=== PATIENT | male | born 1955 | race Caucasian/White ===

== ENCOUNTER 2016-11-17 07:52 | Outpatient (CLI) | payer OTHER | END 2016-11-17 07:53 | disposition EMS.NT | LOC: EMS 07:52 | PROVIDERS: ATTEND Surgery | DX: R42 Dizziness and giddiness (principal); R03.0 Elevated blood-pressure reading, without diagnosis of hypertension ==

== ENCOUNTER 2016-11-17 09:04 | Emergency (ER) | payer OTHER ==
--- NOTE | 2016-11-17 09:26 | ED Physician Documentation ---
PD HPI CHEST PAIN - Stated complaint Stated Complaint: ELEV BP - Chief complaint Chief Complaint: General - History obtained from History obtained from: Patient - History of Present Illness Timing - onset: Today (he says his BP has been pretty good, with slightly increasing over the past few weeks, running about 130s systolic. Today felt flushed and took BP and it was over 200 systolic. He waited and took it a few times more and was about the same. Came to ED for evaluation. Called PMD office and was given appt for 10 am today, but felt he should not wait with the BP that high.) Timing - onset during: Light activity Timing - details: Gradual onset Quality: Other (no chest pains per se. He did have feeling of some tightness in head and flushed feeling in face. He was feeling okay otherwise.). No: Pressure , Tightness Associated symptoms: No: Shortness of air, Diaphoresis, Nausea, Vomiting, Feeling faint / dizzy, General Weakness, Palpitations Similar symptoms before: Has not had sx before Recently seen: Clinic (BP was doing well so his PMD had taken him off HCTZ a few months ago. He is on Lisinopril 20 mg PO daily. No recent illness nor other change in meds.) Review of Systems Constitutional: denies: Fever, Chills Eyes: denies: Loss of vision, Decreased vision Nose: denies: Rhinorrhea / runny nose, Congestion Throat: denies: Sore throat Cardiac: denies: Chest pain / pressure, Palpitations Respiratory: denies: Dyspnea, Cough, Wheezing GI: denies: Abdominal Pain, Nausea, Vomiting, Diarrhea Musculoskeletal: denies: Extremity swelling PD PAST MEDICAL HISTORY - Past Medical History Cardiovascular: Hypertension, High cholesterol Respiratory: Sleep apnea, CPAP use Neuro: None Endocrine/Autoimmune: None GI: Colon polyps, Hemorrhoids : Kidney stones HEENT: None Psych: None Musculoskeletal: Osteoarthritis Derm: Other Other Past Medical History: hyperglycemia - Past Surgical History Past Surgical History: Yes General: Colonoscopy Ortho: Hip replacement HEENT: Tonsil/Adenoidectomy - Present Medications Home Medications: Ambulatory Orders Medication Instructions Recorded Confirmed Aspirin EC [Ecotrin] 81 mg PO DAILY 05/15/13 11/17/16 Lisinopril [Zestril] 10 mg PO DAILY 05/15/13 11/17/16 Simvastatin [Zocor] 40 mg PO QPM 05/15/13 11/17/16 hydroCHLOROthiazide [Hydrodiuril] 25 mg PO DAILY 05/15/13 11/17/16 Ibuprofen [Advil] 200 - 400 mg PO DAILY PRN 04/26/15 11/17/16 metFORMIN [Glucophage] 500 mg PO DAILY 11/17/16 11/17/16 - Allergies Allergies/Adverse Reactions: Allergies Allergy/AdvReac Type Severity Reaction Status Date / Time No Known Drug Allergies Allergy Verified 03/04/15 12:55 - Social History Does the pt smoke?: Yes Smoking Status: Current every day smoker Does the pt drink ETOH?: No Does the pt have substance abuse?: No - Immunizations Immunizations are current?: Yes PD ED PE NORMAL - Vitals Vital signs reviewed: Yes - General General: Alert and oriented X 3, No acute distress, Well developed/nourished - HEENT HEENT: PERRL, EOMI, Pharynx benign - Neck Neck: Supple, no meningeal sign, No adenopathy - Cardiac Cardiac: RRR, No murmur - Respiratory Respiratory: Clear bilaterally - Abdomen Abdomen: Soft, Non tender - Derm Derm: Normal color, Warm and dry - Extremities Extremities: No tenderness to palpate, Normal ROM s pain, No edema, No calf tenderness / cord - Neuro Neuro: Alert and oriented X 3, hand weaver 2-12 intact, No motor deficit, No sensory deficit, Normal speech - Psych Psych: Normal mood, Normal affect Results - Vitals Vitals: Vital Signs - 24 hr 11/17/16 11/17/16 11/17/16 09:08 10:09 10:21 Heart Rate 68 Respiratory 20 Rate Blood Pressure 188/79 H 151/70 H 149/78 H O2 Saturation 100 Oxygen O2 Source [With Activity] Room air O2 Source [Without Activity] Room air O2 Source Room air - EKG (time done) 09:58 Rate: Rate (enter#) (47) Rhythm: Sinus bradycardia [place]: Normal Intervals: Normal CA Ischemia: Normal ST segments. No: ST elevation c/w ischemia, ST depression PD MEDICAL DECISION MAKING - ED course Complexity details: considered differential (no real symptoms except feeling flushed earlier. BP slowly decreasing. I talked with him about AHA and JNC guidelines about not intervening aggressively. ), d/w patient Departure - Departure Disposition: 01 Home, Self Care Clinical Impression: Hypertension Qualifiers: Hypertension type: unspecified secondary hypertension Qualified Code(s): I15.9 - Secondary hypertension, unspecified Condition: Stable Record reviewed to determine appropriate education?: Yes Instructions: ED HTN Established Comments: Continue your lisinopril 20 mg daily; and resume the HCTZ daily. See how your pressure does over the next several days/week. Since your BP has been doing reasonably well lately (just somewhat elevated), then I would not want to add anything aggressively now and get your BP too low. Discharge Date/Time: 11/17/16 10:22
[2016-11-17 10:22] VITALS: BP 149/78
== END 2016-11-17 10:22 | disposition home or self-care (01) ==
LOC: ED 09:04
DX: I10 Essential (primary) hypertension (principal); E78.00 Pure hypercholesterolemia, unspecified; G47.30 Sleep apnea, unspecified; M19.90 Unspecified osteoarthritis, unspecified site; Z86.010 Personal history of colon polyps; Z87.442 Personal history of urinary calculi; Z79.82 Long term (current) use of aspirin; F17.200 Nicotine dependence, unspecified, uncomplicated
CPT/HCPCS: 93005; 93010; 99283; 99284

== ENCOUNTER 2017-02-19 14:44 | Outpatient (CLI) | payer OTHER | END 2017-02-19 14:45 | disposition home or self-care (01) | LOC: SC 14:44 | PROVIDERS: ATTEND Nurse Practitioner Family | DX: G47.33 Obstructive sleep apnea (adult) (pediatric) (principal) | CPT/HCPCS: 99212; 99214 ==

== ENCOUNTER 2017-03-17 17:23 | Emergency (ER) | payer OTHER ==
[2017-03-17 17:31] VITALS: BP 157/82
[2017-03-17] MEDS ORDERED: TETANUS/DIPHTHERIA/PERTUSSIS 0.5 ML SYRINGE IM ONE ×2 (17:56→18:08)
--- NOTE | 2017-03-17 17:58 | ED Physician Documentation ---
PD HPI UPPER EXT INJURY - Stated complaint Stated Complaint: FINGER LAC - Chief complaint Chief Complaint: Laceration - History obtained from History obtained from: Patient - History of Present Illness Location: Other (Right-handed gentleman, unclear tetanus status, cut himself with a sharp knife to the left second finger while making dinner just prior to arrival at home.) Review of Systems Constitutional: reports: Reviewed and negative Cardiac: reports: Reviewed and negative Respiratory: reports: Reviewed and negative PD PAST MEDICAL HISTORY - Past Medical History Cardiovascular: Hypertension, High cholesterol Respiratory: Sleep apnea, CPAP use Neuro: None Endocrine/Autoimmune: None GI: Colon polyps, Hemorrhoids : Kidney stones HEENT: None Psych: None Musculoskeletal: Osteoarthritis Derm: Other - Past Surgical History Past Surgical History: Yes General: Colonoscopy Ortho: Hip replacement HEENT: Tonsil/Adenoidectomy - Present Medications Home Medications: Ambulatory Orders Medication Instructions Recorded Confirmed Aspirin EC [Ecotrin] 81 mg PO DAILY 05/15/13 03/17/17 Lisinopril [Zestril] 10 mg PO DAILY 05/15/13 03/17/17 Simvastatin [Zocor] 40 mg PO QPM 05/15/13 03/17/17 hydroCHLOROthiazide [Hydrodiuril] 25 mg PO DAILY 05/15/13 03/17/17 Ibuprofen [Advil] 200 - 400 mg PO DAILY PRN 04/26/15 03/17/17 metFORMIN [Glucophage] 500 mg PO DAILY 11/17/16 03/17/17 - Allergies Allergies/Adverse Reactions: Allergies Allergy/AdvReac Type Severity Reaction Status Date / Time No Known Drug Allergies Allergy Verified 03/17/17 17:31 - Social History Does the pt smoke?: Yes Smoking Status: Current every day smoker Does the pt drink ETOH?: No Does the pt have substance abuse?: No - Immunizations Immunizations are current?: Yes PD ED PE NORMAL - Vitals Vital signs reviewed: Yes - General General: Alert and oriented X 3, No acute distress - Extremities Extremities: Other (On the palmar side of the left hand at the base of the Second digit, just distal to the level of the MCP there is a 1.5 cm laceration with intact sensation and cap refill of the tip and normal flexor tendon function.) - Neuro Neuro: Alert and oriented X 3, Normal speech Results - Vitals Vitals: Vital Signs - 24 hr 03/17/17 17:28 Temperature 36.6 C Heart Rate 74 Respiratory 16 Rate Blood Pressure 157/82 H O2 Saturation 98 Oxygen O2 Source [With Activity] Room air O2 Source [Without Activity] Room air O2 Source Room air Procedures - Laceration (location) Left second finger Length in cm: 1.5 Wound type: Linear Neurovascular status: Sensory intact, Motor intact, Vascular intact Tendon involvement: Tendon intact Anesthesia: Lidocaine 1%, With bicarb Wound Preparation: Irrigated copiously NS Skin layer closure: Nylon, Interrupted, Size #-0 - enter number (4-0), Sutures - enter # (7) Other: Patient tolerated well, No complications, Tetanus booster given Complexity: Simple Departure - Departure Disposition: 01 Home, Self Care Clinical Impression: Laceration Condition: Good Record reviewed to determine appropriate education?: Yes Instructions: ED Laceration Hand Comments: Come back for any signs of infection which would include: Redness, swelling, drainage, increased pain, or fevers. Follow-up with your physician in 10-14 days for suture removal. Your blood pressure was elevated today on check into the emergency department. This does not mean that you have hypertension, it is a common phenomenon to come to the emergency department and have elevated blood pressure. I recommend that she see your primary care physician within the week to have it rechecked when you are feeling better.
== END 2017-03-17 18:15 | disposition home or self-care (01) ==
LOC: ED 17:23
DX: S61.211A Laceration without foreign body of left index finger without damage to nail, initial encounter (principal); W26.0XXA Contact with knife, initial encounter; Y93.G1 Activity, food preparation and clean up; Y92.019 Unspecified place in single-family (private) house as the place of occurrence of the external cause; Z23 Encounter for immunization; I10 Essential (primary) hypertension; E78.00 Pure hypercholesterolemia, unspecified; G47.30 Sleep apnea, unspecified; M19.90 Unspecified osteoarthritis, unspecified site; Z86.010 Personal history of colon polyps; Z87.442 Personal history of urinary calculi; Z79.82 Long term (current) use of aspirin; F17.200 Nicotine dependence, unspecified, uncomplicated
CPT/HCPCS: 12001; 90471; 99282

== ENCOUNTER 2017-07-08 08:00 | Outpatient (CLI) | payer OTHER ==
[2017-07-08 19:13] LABS: BASOPHILS # (AUTO) 0.1 10^3/uL (0.0-0.1); BASOPHILS % (AUTO) 0.9 %; EOSINOPHILS # (AUTO) 0.2 10^3/uL (0.0-0.7); EOSINOPHILS % (AUTO) 2.6 %; HGB - HEMOGLOBIN 14.5 g/dL (14.0-18.0); LYMPHOCYTES # (AUTO) 2.6 10^3/uL (1.5-3.5); LYMPHOCYTES % (AUTO) 27.9 %; MEAN CORPUSCULAR HEMOGLOBIN 32.4 pg (27.0-31.0); MEAN CORPUSCULAR HGB CONC 33.7 g/dL (32.0-36.0); MEAN CORPUSCULAR VOLUME 95.9 fL (80.0-94.0); MEAN PLATELET VOLUME 8.6 fL (7.4-11.4); MONOCYTES # (AUTO) 0.7 10^3/uL (0.0-1.0); MONOCYTES % (AUTO) 7.4 %; NEUTROPHILS # (AUTO) 5.6 10^3/uL (1.5-6.6); NEUTROPHILS % (AUTO) 61.2 %; PLT - PLATELET COUNT 196 10^3/uL (130-450); RED BLOOD COUNT 4.48 10^6/uL (4.70-6.10); RED CELL DISTRIBUTION WIDTH 13.5 % (12.0-15.0); WHITE BLOOD COUNT 9.2 x10^3/uL (4.8-10.8)
[2017-07-08 19:24] LABS: HB2 TOTAL 15.7 g/dL; HEMOGLOBIN A1C 0.64 g/dL; HEMOGLOBIN A1C % 5.9 % (4.6-6.2)
[2017-07-08 19:33] LABS: ALBUMIN 4.6 g/dL (3.2-5.5); ALKALINE PHOSPHATASE 47 IU/L (42-121); ALT ALANINE AMINOTRANSFERASE 22 IU/L (10-60); AST ASPARTATE AMINOTRANSFERASE 20 IU/L (10-42); BILIRUBIN,TOTAL 0.4 mg/dL (0.2-1.0); BUN - BLOOD UREA NITROGEN 23 mg/dL (6-20); CALCIUM 9.1 mg/dL (8.5-10.3); CARBON DIOXIDE - CO2 24 mmol/L (21-32); CHLORIDE 102 mmol/L (101-111); CHOL/HDL RATIO 5.1 (<5.0); CHOLESTEROL 199 mg/dL; GFR - MDRD 76 (>89); GLUCOSE 85 mg/dL (70-100); HDL CHOLESTEROL 39 mg/dL; LDL CHOLESTEROL,CALCULATED 127 mg/dL; LDL/HDL RATIO 3.3 (<3.6); SODIUM 132 mmol/L (135-145); TOTAL PROTEIN 6.9 g/dL (6.7-8.2); VLDL CHOLESTEROL 33 mg/dL
== END 2017-07-08 08:01 | disposition home or self-care (01) ==
LOC: LAB.WCP 08:00
PROVIDERS: ATTEND Family Medicine
DX: I10 Essential (primary) hypertension (principal); E78.5 Hyperlipidemia, unspecified; R73.01 Impaired fasting glucose
CPT/HCPCS: 36415; 80053; 80061; 83036; 83721; 85025

== ENCOUNTER 2017-07-31 08:00 | Outpatient (CLI) | payer OTHER | END 2017-07-31 08:01 | disposition home or self-care (01) | LOC: LAB.WCP 08:00 | PROVIDERS: ATTEND Family Medicine | DX: R19.7 Diarrhea, unspecified (principal) | CPT/HCPCS: 81599; 83630; 87045; 87046; 87177; 87209; 87329; 87493 ==

== ENCOUNTER 2017-10-02 09:22 | Outpatient (CLI) | payer OTHER ==
[2017-10-02 13:43] LABS: HB2 TOTAL 15.5 g/dL; HEMOGLOBIN A1C 0.6 g/dL; HEMOGLOBIN A1C % 5.7 % (4.6-6.2)
[2017-10-02 13:44] LABS: ALBUMIN 4.5 g/dL (3.2-5.5); ALBUMIN/GLOBULIN RATIO 1.9 (1.0-2.2); ALKALINE PHOSPHATASE 44 IU/L (42-121); ALT ALANINE AMINOTRANSFERASE 16 IU/L (10-60); AST ASPARTATE AMINOTRANSFERASE 18 IU/L (10-42); BILIRUBIN,TOTAL 0.6 mg/dL (0.2-1.0); BUN - BLOOD UREA NITROGEN 23 mg/dL (6-20); CALCIUM 9.5 mg/dL (8.5-10.3); CARBON DIOXIDE - CO2 27 mmol/L (21-32); CHLORIDE 104 mmol/L (101-111); CHOL/HDL RATIO 4.4 (<5.0); CHOLESTEROL 160 mg/dL; GFR - MDRD 76 (>89); GLUCOSE 94 mg/dL (70-100); HDL CHOLESTEROL 36 mg/dL; LDL CHOLESTEROL,CALCULATED 105 mg/dL; LDL/HDL RATIO 2.9 (<3.6); SODIUM 136 mmol/L (135-145); TOTAL PROTEIN 6.9 g/dL (6.7-8.2); VLDL CHOLESTEROL 19 mg/dL
== END 2017-10-02 09:23 | disposition home or self-care (01) ==
LOC: LAB.WCP 09:22
PROVIDERS: ATTEND Family Medicine
DX: E78.5 Hyperlipidemia, unspecified (principal); R73.01 Impaired fasting glucose
CPT/HCPCS: 36415; 80053; 80061; 83036; 83721

== ENCOUNTER 2017-10-11 15:24 | Emergency (ER) | payer OTHER ==
--- NOTE | 2017-10-11 15:45 | ED Physician Documentation ---
PD HPI ABD PAIN - Stated complaint Stated Complaint: RT SIDE PAIN/POSS KIDNEY STONE - Chief complaint Chief Complaint: Abd Pain - History obtained from History obtained from: Patient - History of Present Illness Timing - onset: Today, How many weeks ago (has had some transient sharp pains right side/flank, which has become more severe and prolonged here this afternoon.) Timing - duration: Days Timing - details: Still present (now worst and more consistent today), Intermittant Quality: Aching, Dull, Pain Location: RLQ Radiation: Lower back Improved by: Laying still. No: Eating Worsened by: Moving, Position. No: Eating, Breathing, Palpation Associated symptoms: No: Fever, Nausea, Vomiting, Diarrhea, Constipation, Dysuria, Hematuria Similar symptoms before: Diagnosis (kidney stones.) Recently seen: Not recently seen Review of Systems Constitutional: denies: Fever Nose: denies: Rhinorrhea / runny nose, Congestion Throat: denies: Sore throat Cardiac: denies: Chest pain / pressure, Palpitations Respiratory: denies: Dyspnea, Cough : reports: Dysuria, Frequency Skin: denies: Lesions, Abrasion (s), Laceration (s) Musculoskeletal: denies: Neck pain PD PAST MEDICAL HISTORY - Past Medical History Cardiovascular: Hypertension, High cholesterol Respiratory: Sleep apnea, CPAP use Neuro: None Endocrine/Autoimmune: None GI: Colon polyps, Hemorrhoids : Kidney stones HEENT: None Psych: None Musculoskeletal: Osteoarthritis Derm: Other - Past Surgical History Past Surgical History: Yes General: Colonoscopy Ortho: Hip replacement HEENT: Tonsil/Adenoidectomy - Present Medications Home Medications: Ambulatory Orders Medication Instructions Recorded Confirmed Aspirin EC [Ecotrin] 81 mg PO DAILY 05/15/13 03/17/17 Lisinopril [Zestril] 10 mg PO DAILY 05/15/13 03/17/17 Simvastatin [Zocor] 40 mg PO QPM 05/15/13 03/17/17 hydroCHLOROthiazide [Hydrodiuril] 25 mg PO DAILY 05/15/13 03/17/17 Ibuprofen [Advil] 200 - 400 mg PO DAILY PRN 04/26/15 03/17/17 metFORMIN [Glucophage] 500 mg PO DAILY 11/17/16 03/17/17 Ondansetron HCl [Zofran] 4 mg PO Q6H PRN #20 tablet 10/11/17 Oxycodone HCl/Acetaminophen 1 each PO Q6H PRN #20 tablet 10/11/17 [Percocet 5-325 mg Tablet] - Allergies Allergies/Adverse Reactions: Allergies Allergy/AdvReac Type Severity Reaction Status Date / Time No Known Drug Allergies Allergy Verified 10/11/17 15:32 - Social History Does the pt smoke?: Yes Smoking Status: Current every day smoker Does the pt drink ETOH?: No Does the pt have substance abuse?: No - Family History Family history: denies: Aortic aneursym, Aortic dissection - Immunizations Immunizations are current?: Yes PD ED PE NORMAL - Vitals Vital signs reviewed: Yes - General General: Alert and oriented X 3, No acute distress, Well developed/nourished - HEENT HEENT: Pharynx benign - Neck Neck: Supple, no meningeal sign, No adenopathy - Cardiac Cardiac: RRR, No murmur - Respiratory Respiratory: No respiratory distress, Clear bilaterally - Derm Derm: Normal color, Warm and dry - Extremities Extremities: No tenderness to palpate, Normal ROM s pain - Neuro Neuro: Alert and oriented X 3, No motor deficit, Normal speech Results - Vitals Vitals: Vital Signs - 24 hr 10/11/17 10/11/17 15:30 17:27 Temperature 36.7 C 36.8 C Heart Rate 54 L 62 Respiratory 16 15 Rate Blood Pressure 166/83 H 154/74 H O2 Saturation 98 99 Oxygen O2 Source [With Activity] Room air O2 Source [Without Activity] Room air O2 Source Room air - Labs Labs: Laboratory Tests 10/11/17 10/11/17 10/11/17 15:45 15:50 15:50 WBC 8.2 RBC 4.31 L Hgb 14.4 Hct 43.5 MCV 100.9 H MCH 33.4 H MCHC 33.1 RDW 14.5 Plt Count 167 MPV 8.1 Neut # 5.1 Lymph # 2.3 [place] # 0.6 Eos # 0.3 Baso # 0.1 Absolute Nucleated RBC 0.00 Nucleated RBC % 0.0 Sodium 135 Potassium 3.8 Chloride 103 Carbon Dioxide 25 Anion Gap 7.0 BUN 37 H Creatinine 1.2 Estimated GFR (MDRD) 61 L Glucose 111 H Calcium 9.7 Total Bilirubin 0.5 AST 17 ALT 18 Alkaline Phosphatase 49 Total Protein 6.9 Albumin 4.6 Globulin 2.3 Albumin/Globulin Ratio 2.0 Lipase 38 Urine Color YELLOW Urine Clarity CLEAR Urine pH 6.0 Ur Specific [place] 1.025 Urine Protein NEGATIVE Urine Glucose (UA) NEGATIVE Urine Ketones NEGATIVE Urine Occult Blood NEGATIVE Urine Nitrite NEGATIVE Urine Bilirubin NEGATIVE Urine Urobilinogen 0.2 (NORMAL) Ur Leukocyte Esterase NEGATIVE Ur Microscopic Review NOT INDICATED Urine Culture Comments NOT INDICATED - Rads (name of study) KUB CT Radiology: Prelim report reviewed (no acute process), EMP read contemporaneously (consider stone distal third ureter c/w stone. ) PD MEDICAL DECISION MAKING - ED course Complexity details: reviewed results (acting stone-like and not hurting to palpation. I think there is a Ca+ buildup distal third ureter, with mild kidney ), considered differential, d/w patient Departure - Departure Disposition: 01 Home, Self Care Clinical Impression: Right lateral abdominal pain, Ureterolithiasis Condition: Stable Record reviewed to determine appropriate education?: Yes Instructions: ED Stone Renal W Colic Follow-Up: Adia Lima MD [Primary Care Provider] - Prescriptions: Ondansetron HCl [Zofran] 4 mg PO Q6H PRN #20 tablet PRN Reason: Nausea / Vomiting Oxycodone HCl/Acetaminophen [Percocet 5-325 mg Tablet] 1 each PO Q6H PRN #20 tablet PRN Reason: Pain Comments: Drink lots of fluids. Ibuprofen 2-3 times a day for the next several days. Add Tylenol if needed. Use ondansetron if needed for nausea. Add Percocet if needed for pain. Recheck if does not seem like the stone is passed over the next several days. Return sooner if worse. Discharge Date/Time: 10/11/17 17:28
[2017-10-11 16:04] LABS: BASOPHILS # (AUTO) 0.1 10^3/uL (0.0-0.1); BASOPHILS % (AUTO) 0.8 %; EOSINOPHILS # (AUTO) 0.3 10^3/uL (0.0-0.7); HGB - HEMOGLOBIN 14.4 g/dL (14.0-18.0); LYMPHOCYTES # (AUTO) 2.3 10^3/uL (1.5-3.5); LYMPHOCYTES % (AUTO) 27.5 %; MEAN CORPUSCULAR HEMOGLOBIN 33.4 pg (27.0-31.0); MEAN CORPUSCULAR HGB CONC 33.1 g/dL (32.0-36.0); MEAN CORPUSCULAR VOLUME 100.9 fL (80.0-94.0); MEAN PLATELET VOLUME 8.1 fL (7.4-11.4); MONOCYTES # (AUTO) 0.6 10^3/uL (0.0-1.0); NEUTROPHILS # (AUTO) 5.1 10^3/uL (1.5-6.6); NEUTROPHILS % (AUTO) 61.7 %; PLT - PLATELET COUNT 167 10^3/uL (130-450); RED BLOOD COUNT 4.31 10^6/uL (4.70-6.10); RED CELL DISTRIBUTION WIDTH 14.5 % (12.0-15.0); WHITE BLOOD COUNT 8.2 x10^3/uL (4.8-10.8)
[2017-10-11 16:09] LABS: BILIRUBIN,URINE NEGATIVE (NEGATIVE); GLUCOSE, URINE (UA) NEGATIVE (NEGATIVE); KETONES,URINE (UA) NEGATIVE (NEGATIVE); LEUKOCYTE ESTERASE, URINE NEGATIVE (NEGATIVE); NITRITE,URINE NEGATIVE (NEGATIVE); OCCULT BLOOD,URINE NEGATIVE (NEGATIVE); PROTEIN,URINE NEGATIVE (NEGATIVE); UROBILINOGEN,URINE 0.2 (NORMAL) E.U./dL (NORMAL)
[2017-10-11 16:13] LABS: ALBUMIN 4.6 g/dL (3.2-5.5); BILIRUBIN,TOTAL 0.5 mg/dL (0.2-1.0); CALCIUM 9.7 mg/dL (8.5-10.3); CREATININE 1.2 mg/dL (0.6-1.2); TOTAL PROTEIN 6.9 g/dL (6.7-8.2)
[2017-10-11 16:14] LABS: CLARITY,URINE CLEAR (CLEAR)
--- NOTE | 2017-10-11 17:10 | CT Preliminary Report ---
Exam: CT KUB IMPRESSION: 1. Right renal lithiasis without obstructive uropathy. 2. Increasing small hepatic and right renal cysts. 3. Normal appendix. 4. No radiographic explanation for this gentleman's presenting symptoms. [facility] SITE ID: [id number]
--- NOTE | 2017-10-11 17:15 | CT Report ---
EXAM: CT ABDOMEN AND PELVIS EXAM DATE: 10/11/2017 04:47 PM. CLINICAL HISTORY: Nephrolithiasis. Right-sided flank and abdominal pain beginning today. COMPARISONS: 08/30/2014. TECHNIQUE: Routine helical CT imaging was performed through the abdomen and pelvis. IV contrast: None . Enteric contrast: No. Reconstructions: Coronal and sagittal. In accordance with CT protocol optimization, one or more of the following dose reduction techniques w ere utilized for this exam: automated exposure control, adjustment of mA and/or KV based on patient s ize, or use of iterative reconstructive technique. FINDINGS: Lung Bases: Unremarkable. Liver: Increasing number of 1.5 cm and smaller hepatic hypodensities, appearance favors cysts. Gallbladder/Bile Ducts: Unremarkable. Spleen: Normal. Pancreas: Normal. Adrenal Glands: Normal right adrenal gland. Stable hyperplasia left adrenal gland. Kidneys: Increasing caliber of the cortical cyst medial inferior aspect right kidney, currently 2.1 cm, previo usly 1.3 cm. Stable 1 mm stone in the inferior right renal calyx. No right hydronephrosis. Interval development of a 6 mm hemorrhagic cyst right renal cortex. No overlying contour abnormality. Right ureter is normal. Left kidney and left ureter are normal. Peritoneal Cavity/Bowel: Normal. No free fluid, free air or adenopathy. No masses or acute inflammato ry process. The appendix is well visualized and normal. Pelvic Organs: Normal. The bladder and visualized pelvic organs are within normal limits. Vasculature: No aneurysms or other significant abnormality. Bones: Bilateral total hip replacements. No significant abnormality. Other: None. IMPRESSION: 1. Right renal lithiasis without obstructive uropathy. 2. Increasing small hepatic and right renal cysts. 3. Normal appendix. 4. No radiographic explanation for this gentleman's presenting symptoms. [facility] Referring Provider Line: [phone] SITE ID: [id number]
[2017-10-11 17:28] VITALS: BP 154/74
== END 2017-10-11 17:28 | disposition home or self-care (01) ==
LOC: ED 15:24
DX: N20.1 Calculus of ureter (principal); I10 Essential (primary) hypertension; E78.00 Pure hypercholesterolemia, unspecified; F17.200 Nicotine dependence, unspecified, uncomplicated; Z96.649 Presence of unspecified artificial hip joint; Z79.82 Long term (current) use of aspirin
CPT/HCPCS: 36415; 74176; 80053; 81001; 81003; 83690; 85025; 87086; 99283

== ENCOUNTER 2017-11-06 03:55 | Emergency (ER) | payer OTHER ==
[2017-11-06] MEDS ORDERED: KETOROLAC 60 MG/2 ML VIAL IVP STA (04:06)
[2017-11-06] MEDS ORDERED: SODIUM CHLORIDE 0.9% 1,000 ML IV ONE (04:06)
[2017-11-06 04:17] LABS: BILIRUBIN,URINE NEGATIVE (NEGATIVE); GLUCOSE, URINE (UA) NEGATIVE (NEGATIVE); KETONES,URINE (UA) NEGATIVE (NEGATIVE); LEUKOCYTE ESTERASE, URINE NEGATIVE (NEGATIVE); NITRITE,URINE NEGATIVE (NEGATIVE); OCCULT BLOOD,URINE NEGATIVE (NEGATIVE); PROTEIN,URINE NEGATIVE (NEGATIVE); UROBILINOGEN,URINE 0.2 (NORMAL) E.U./dL (NORMAL)
[2017-11-06 04:19] LABS: BASOPHILS # (AUTO) 0.1 10^3/uL (0.0-0.1); BASOPHILS % (AUTO) 1.2 %; EOSINOPHILS # (AUTO) 0.3 10^3/uL (0.0-0.7); EOSINOPHILS % (AUTO) 2.4 %; HGB - HEMOGLOBIN 13.8 g/dL (14.0-18.0); LYMPHOCYTES # (AUTO) 1.7 10^3/uL (1.5-3.5); LYMPHOCYTES % (AUTO) 15.1 %; MEAN CORPUSCULAR HGB CONC 34.2 g/dL (32.0-36.0); MEAN CORPUSCULAR VOLUME 96.3 fL (80.0-94.0); MEAN PLATELET VOLUME 8.2 fL (7.4-11.4); MONOCYTES % (AUTO) 8.6 %; NEUTROPHILS # (AUTO) 8.4 10^3/uL (1.5-6.6); NEUTROPHILS % (AUTO) 72.7 %; PLT - PLATELET COUNT 149 10^3/uL (130-450); RED BLOOD COUNT 4.19 10^6/uL (4.70-6.10); RED CELL DISTRIBUTION WIDTH 14.1 % (12.0-15.0); WHITE BLOOD COUNT 11.5 x10^3/uL (4.8-10.8)
[2017-11-06 04:30] LABS: ALBUMIN 4.6 g/dL (3.2-5.5); ALBUMIN/GLOBULIN RATIO 1.9 (1.0-2.2); BILIRUBIN,TOTAL 0.7 mg/dL (0.2-1.0); CALCIUM 9.2 mg/dL (8.5-10.3); CREATININE 1.2 mg/dL (0.6-1.2)
--- NOTE | 2017-11-06 04:53 | ED Physician Documentation ---
PD HPI MALE - Stated complaint Stated Complaint: RT FLANK PAIN - Chief complaint Chief Complaint: Abd Pain - History obtained from History obtained from: Patient - History of Present Illness Timing - onset: Yesterday Timing - details: Gradual onset, Intermittant Associated symptoms: Back pain Similar symptoms before: Treatment Recently seen: Not recently seen - Additional information Additional information: Patient is a 62 year old male with a history of kidney stones who is presenting to the emergency department for right sided flank pain with radiation to his right side of his abdomen. patient denies nausea, vomiting, fever or chills. Review of Systems Constitutional: denies: Fever, Chills GI: denies: Abdominal Pain, Nausea, Vomiting : denies: Dysuria, Frequency PD PAST MEDICAL HISTORY - Past Medical History Past Medical History: Yes Cardiovascular: Hypertension, High cholesterol Respiratory: Sleep apnea, CPAP use Endocrine/Autoimmune: Type 2 diabetes GI: Colon polyps, Hemorrhoids : Kidney stones HEENT: None Psych: None Musculoskeletal: Osteoarthritis Derm: Other - Past Surgical History Past Surgical History: Yes General: Colonoscopy Ortho: Hip replacement HEENT: Tonsil/Adenoidectomy - Present Medications Home Medications: Ambulatory Orders Medication Instructions Recorded Confirmed Aspirin EC [Ecotrin] 81 mg PO DAILY 05/15/13 03/17/17 Lisinopril [Zestril] 20 mg PO DAILY 05/15/13 03/17/17 Simvastatin [Zocor] 40 mg PO QPM 05/15/13 03/17/17 hydroCHLOROthiazide [Hydrodiuril] 25 mg PO DAILY 05/15/13 03/17/17 Ibuprofen [Advil] 200 - 400 mg PO DAILY PRN 04/26/15 03/17/17 metFORMIN [Glucophage] 500 mg PO DAILY 11/17/16 03/17/17 Ondansetron HCl [Zofran] 4 mg PO Q6H PRN #20 tablet 10/11/17 Oxycodone HCl/Acetaminophen 1 - 2 each PO Q6H PRN #7 tablet 11/06/17 [Percocet 5-325 mg Tablet] - Allergies Allergies/Adverse Reactions: Allergies Allergy/AdvReac Type Severity Reaction Status Date / Time No Known Drug Allergies Allergy Verified 11/06/17 04:00 - Social History Does the pt smoke?: Yes Smoking Status: Current every day smoker Does the pt drink ETOH?: No Does the pt have substance abuse?: No - Immunizations Immunizations are current?: Yes - POLST Patient has POLST: No PD ED PE NORMAL - Vitals Vital signs reviewed: Yes - General General: Alert and oriented X 3, No acute distress - HEENT HEENT: Atraumatic, Moist mucous membranes - Neck Neck: Supple, no meningeal sign - Cardiac Cardiac: RRR - Respiratory Respiratory: No respiratory distress - Abdomen Abdomen: Soft, Non tender, Non distended - Derm Derm: Normal color, Warm and dry - Extremities Extremities: No deformity - Neuro Neuro: Alert and oriented X 3 Eye Opening: Spontaneous Motor: Obeys Commands Results - Vitals Vitals: Vital Signs - 24 hr 11/06/17 03:57 Temperature 36.1 C L Heart Rate 56 L Respiratory 18 Rate Blood Pressure 161/86 H O2 Saturation 100 Oxygen O2 Source [With Activity] Room air O2 Source [Without Activity] Room air O2 Source Room air - Labs Labs: Laboratory Tests 11/06/17 11/06/17 11/06/17 04:05 04:15 04:15 WBC 11.5 H RBC 4.19 L Hgb 13.8 L Hct 40.4 L MCV 96.3 H MCH 33.0 H MCHC 34.2 RDW 14.1 Plt Count 149 MPV 8.2 Neut # 8.4 H Lymph # 1.7 [place] # 1.0 Eos # 0.3 Baso # 0.1 Absolute Nucleated RBC 0.00 Nucleated RBC % 0.0 Sodium 136 Potassium 3.5 Chloride 103 Carbon Dioxide 25 Anion Gap 8.0 BUN 25 H Creatinine 1.2 Estimated GFR (MDRD) 61 L Glucose 121 H Calcium 9.2 Total Bilirubin 0.7 AST 18 ALT 15 Alkaline Phosphatase 55 Total Protein 7.0 Albumin 4.6 Globulin 2.4 Albumin/Globulin Ratio 1.9 Lipase 28 Urine Color YELLOW Urine Clarity CLEAR Urine pH 6.0 Ur Specific [place] 1.025 Urine Protein NEGATIVE Urine Glucose (UA) NEGATIVE Urine Ketones NEGATIVE Urine Occult Blood NEGATIVE Urine Nitrite NEGATIVE Urine Bilirubin NEGATIVE Urine Urobilinogen 0.2 (NORMAL) Ur Leukocyte Esterase NEGATIVE Ur Microscopic Review NOT INDICATED Urine Culture Comments NOT INDICATED PD MEDICAL DECISION MAKING - ED course Complexity details: reviewed old records, reviewed results, re-evaluated patient , considered differential, d/w patient, d/w family ED course: Patient was seen and examined at bedside. iv access was gained and labs were drawn. Patient was treated with a fluid bolus and toradol. urine was collected. Patient's previous results were reviewed. Patient's diagnostics were within normal limits. There was no blood in the urine and the symptoms were unlikely from renal colic, but possible from the hemorrhagic cyst. patient was well appearing and in no distress. Patient required no further inpatient work up and was stable for discharge with outpatient follow up. Departure - Departure Disposition: Home, Self Care Clinical Impression: Flank pain Condition: Good Instructions: ED Flank Pain Uncertain Cause Follow-Up: Adia Lima MD [Primary Care Provider] - Prescriptions: Ketorolac [Toradol] 10 mg PO Q6H #20 tablet Oxycodone HCl/Acetaminophen [Percocet 5-325 mg Tablet] 1 - 2 each PO Q6H PRN #7 tablet PRN Reason: pain Comments: Your diagnostics today were within normal limits. there is no sign of infection or blood in your urine. While it is possible that it is a kidney stone it is less likely. As these symptoms are becoming more frequent you should follow up with your pmd for a renal ultrasound. You should stay well hydrated. You can take ibuprofen or tylenol for pain and an occasional percocet for breakthrough pain. Forms: Activity restrictions
[2017-11-06 05:01] LABS: CLARITY,URINE CLEAR (CLEAR)
[2017-11-06 05:22] VITALS: BP 150/86
== END 2017-11-06 05:23 | disposition home or self-care (01) ==
LOC: ED 03:55
DX: R10.31 Right lower quadrant pain (principal); I10 Essential (primary) hypertension; E78.00 Pure hypercholesterolemia, unspecified; E11.9 Type 2 diabetes mellitus without complications; F17.200 Nicotine dependence, unspecified, uncomplicated; Z79.84 Long term (current) use of oral hypoglycemic drugs; Z96.649 Presence of unspecified artificial hip joint; Z87.442 Personal history of urinary calculi; Z79.82 Long term (current) use of aspirin
CPT/HCPCS: 36415; 80053; 81001; 81003; 83690; 85025; 87086; 96361; 96374; 99283

== ENCOUNTER 2017-11-19 11:04 | Day surgery (SDC) | payer OTHER ==
[2017-11-19] MEDS ORDERED: LACTATED RINGERS 1,000 ML IV ONE (11:37)
[2017-11-19] MEDS ORDERED: MIDAZOLAM 2 MG/2 ML VIAL IVP ONE (12:21)
[2017-11-19] MEDS ORDERED: fentaNYL 250 MCG/5 ML VIAL IVP ONE (12:21)
[2017-11-19 13:19] VITALS: BP 112/60
== END 2017-11-19 11:05 | disposition home or self-care (01) ==
LOC: SDS 11:04
PROVIDERS: ATTEND Surgery
PROC: 0DBL8ZX Excision of Transverse Colon, Via Natural or Artificial Opening Endoscopic, Diagnostic (ICD-10-PCS; 2017-11-19)
PROC: 0DBP8ZX Excision of Rectum, Via Natural or Artificial Opening Endoscopic, Diagnostic (ICD-10-PCS; 2017-11-19)
PROC: 0DBM8ZX Excision of Descending Colon, Via Natural or Artificial Opening Endoscopic, Diagnostic (ICD-10-PCS; 2017-11-19)
PROC: 0DBH8ZX Excision of Cecum, Via Natural or Artificial Opening Endoscopic, Diagnostic (ICD-10-PCS; 2017-11-19)
PROC: 0DBK8ZX Excision of Ascending Colon, Via Natural or Artificial Opening Endoscopic, Diagnostic (ICD-10-PCS; principal; 2017-11-19 12:15)
DX: Z12.11 Encounter for screening for malignant neoplasm of colon (principal); Z86.010 Personal history of colon polyps; K64.4 Residual hemorrhoidal skin tags; K64.8 Other hemorrhoids; D12.0 Benign neoplasm of cecum; D12.2 Benign neoplasm of ascending colon; D12.3 Benign neoplasm of transverse colon; D12.4 Benign neoplasm of descending colon; K62.1 Rectal polyp; F17.210 Nicotine dependence, cigarettes, uncomplicated; I10 Essential (primary) hypertension; E78.5 Hyperlipidemia, unspecified; G47.30 Sleep apnea, unspecified; M19.90 Unspecified osteoarthritis, unspecified site
CPT/HCPCS: 45384; J3010; J7120; 88305

== ENCOUNTER 2018-04-02 18:57 | Emergency (ER) | payer OTHER ==
[2018-04-02 19:04] VITALS: BP 153/81
== END 2018-04-02 19:09 | disposition left against medical advice (07) ==
LOC: ED 18:57
DX: Z53.21 Procedure and treatment not carried out due to patient leaving prior to being seen by health care provider (principal)
CPT/HCPCS: 80053; 83690; 85025

== ENCOUNTER 2018-04-21 09:14 | Outpatient (CLI) | payer OTHER | END 2018-04-21 09:15 | disposition home or self-care (01) | LOC: SC 09:14 | PROVIDERS: ATTEND Internal Medicine Pulmonary Disease | DX: G47.33 Obstructive sleep apnea (adult) (pediatric) (principal) | CPT/HCPCS: 99212; 99213 ==

== ENCOUNTER 2019-04-07 11:17 | Outpatient (CLI) | payer OTHER ==
--- NOTE | 2019-04-07 12:52 | SLEEP CARE CONSULTATION ---
Information from patient questionnaire entered by Linnea Daugherty. I have reviewed and concur with the information entered by Linnea Daugherty. This document represents the service I personally performed and the decisions made by me, Tyler Skelton MD, [facility]. History of Present Illness Previous diagnosis: Severe, Obstructive Sleep Apnea-Hypopnea Syndrome AHI: 39 Reason for CPAP/BiPAP follow up: annual Equipment type: CPAP Equipment obtained from: [employer] Mask brand: Respironics Prior sleep studies: Yes Year and Where: 2008 [facility] HPI additional information: HPI: Mr. Hernandez returned today for annual follow up of nasal CPAP therapy. He was diagnosed to have severe obstructive sleep apnea-hypopnea syndrome. The patient gets his supplies from [employer]. He still wears the ResMed Doty LT nasal pillows. He continues to use the device nightly and all through the night. The compliance report shows usage in 180 nights out of the past 180 nights, averaging 8 hours a night. He complained of no particular problem with the device such as soreness on the face, dry nose, epistaxis, nasal congestion or headache. He thinks that the pressure of 13 cmH2O is comfortable. On the CPAP therapy he notices improvement in his sleep quality, and that he wakes up feeling fresher in the morning and more awake/alert during the day. [place] Sleepiness Scale score is 4. The average residual AHI is 2.5; and air leak, 1 second a night. CPAP Compliance Data - Data Reviewed with Patient Average duration of nightly device use: 8h 41m Compliance rate %: 99.4 Current pressure setting (cmH2O): 13 Humidity settin Subjective Current pressure setting perceived as: comfortable Initial [place] Sleepiness Scale score: 9 Current [place] Sleepiness Scale score: 4 Allergies and Home Medications Drug allergies reviewed: Yes Home medication list reviewed: Yes Review of Systems Review of systems same as previous: Yes Physical Exam Weight: 201 lb Impression and Plan IMPRESSION: 1. Obstructive Sleep Apnea-Hypopnea Syndrome, severe, with the p atient continuing to do well on nasal CPAP therapy. He has excellent compliance and significant clinical improvement. The current pressure appears effective and comfortable. Overall, he is very satisfied with treatment and plans to continue with it long-term. Because the CPAP is now older than the useful life of 5 years, I will order the patient a new one and make it an autoCPAP set between 10 and 14 cmH2O. PLAN: 1. Continue with CPAP set at 13 cm H2O. 2. Try to lose weight. 3. Try other masks and nasal pillows, e.g. ResMed N30i mask 4. Return for follow up after one month on the new machine. I spent 100% of this 20 minute visit face to face with the patient with greater than 50% of this was spent time counseling the patient and coordination of care.
== END 2019-04-07 11:18 | disposition home or self-care (01) ==
LOC: SC 11:17
PROVIDERS: ATTEND Internal Medicine Pulmonary Disease
DX: G47.33 Obstructive sleep apnea (adult) (pediatric) (principal)
CPT/HCPCS: 99212; 99213

== ENCOUNTER 2019-06-08 10:15 | Outpatient (CLI) | payer OTHER ==
--- NOTE | 2019-06-08 10:43 | SLEEP CARE CONSULTATION ---
Information from patient questionnaire entered by Stephanie Kat. I have reviewed and concur with the information entered by Stephanie Kat. This document represents the service I personally performed and the decisions made by me, Tyler Skelton MD, [facility]. History of Present Illness Previous diagnosis: Severe, Obstructive Sleep Apnea-Hypopnea Syndrome AHI: 39.0 Reason for follow up: first compliance after device update Equipment type: CPAP Equipment obtained from: [employer] Mask style: Nasal pillows HPI additional information: HPI: Mr. Hernandez returned today for follow up of nasal CPAP therapy. He was diagnosed to have severe obstructive sleep apnea-hypopnea syndrome. The patient wears a ResMed N30i mask. He reports using the device nightly and all through the night. The compliance report shows usage in 30 nights out of the past 30 nights, averaging 7.6 hours a night. The > 4 hour compliance rate for the past 30 days is 100%. He complained of no particular problem with the device such as soreness on the face, dry nose, epistaxis, nasal congestion or headache. He thinks that the pressure of 10 14 cmH2O is comfortable. On the CPAP therapy he notices improvement in his sleep quality, and that he wakes up feeling fresher in the morning and more awake/alert during the day. [place] Sleepiness Scale score is 1. His notices no snore at all. The average residual AHI is 6.6; and average time in large leak per day is 2 seconds. The 90th percentile pressure is 12.4 cmH2O. Subjective Initial [place] Sleepiness Scale score: 9 Current [place] Sleepiness Scale score: 1 Allergies and Home Medications Drug allergies reviewed: Yes Home medication list reviewed: Yes Allergy and home medication list: Current Medications: metformin, hydrochlorothiazide, simvastatin, lisinopril, aspirin Allergies: no known drug allergies Physical Exam Weight: 202 lb Impression and Plan IMPRESSION: 1. Obstructive Sleep Apnea-Hypopnea Syndrome, severe, with the patient doing well on nasal CPAP therapy. He has excellent compliance and significant clinical improvement. The current pressure appears slightly ineffective but comfortable. His mask fits well. Overall, he is very satisfied with treatment and plans to continue with it long-term. To make the treatment more effective, I will raise the pressure range to 12- 14 cmH2O (his old machine was set on 13 cmH2O and the residual AHI was 2.2). PLAN: 1. Raise autoCPAP to 12 - 14 cmH2O. 2. Try to lose weight 3. Return in one year for follow up or earlier if there is any problem with the treatment. I spent 100% of this visit face to face with the patient with greater than 50% of this was spent time counseling the patient and coordination of care.
== END 2019-06-08 10:16 | disposition home or self-care (01) ==
LOC: SC 10:15
PROVIDERS: ATTEND Internal Medicine Pulmonary Disease
DX: G47.33 Obstructive sleep apnea (adult) (pediatric) (principal)
CPT/HCPCS: 99212; 99213

== ENCOUNTER 2020-06-21 09:49 | Outpatient (CLI) | payer OTHER ==
--- NOTE | 2020-06-21 16:51 | XRAY Report ---
PROCEDURE: Shoulder 2 View LT INDICATIONS: LEFT SHOULDER PAIN TECHNIQUE: 2 views of the shoulder were acquired. COMPARISON: None FINDINGS: Bones: No fractures or dislocations. No suspicious bony lesions. Visualized ribs appear intact. T here is moderate AC joint osteoarthritis and also glenohumeral degenerative osteoarthritis but no tra carmelita found. Soft tissues: No suspicious soft tissue calcifications. IMPRESSION: Moderate osteoarthritis at the left shoulder as discussed, without trauma. No subluxatio n. Reviewed by: Moody Escobar MD on 06/21/2020 4:49 PM PST Approved by: Moody Escobar MD on 06/21/2020 4:49 PM PST Station ID: [id number]
== END 2020-06-21 23:59 ==
LOC: DI.WCP 09:49
PROVIDERS: ATTEND Family Medicine
DX: M19.012 Primary osteoarthritis, left shoulder (principal)

== ENCOUNTER 2020-07-02 09:57 | Outpatient (CLI) | payer OTHER ==
--- NOTE | 2020-07-02 10:30 | CT Report ---
PROCEDURE: Low Dose Lung Cancer Screen INDICATIONS: NICOTINE ADDICTION IN REMISSION TECHNIQUE: Noncontrast low-dose 5 mm thick sections acquired from the pulmonary apices to the posterior costophr enic angles. 7 mm thick coronal and sagittal MIP reformats were then acquired. For radiation dose r eduction, the following was used: automated exposure control, adjustment of mA and/or kV according t o patient size. COMPARISON: Correlation is made with overlapping portions of the abdomen and pelvis CT, 08/30/2014 FINDINGS: Image quality: Excellent. Lungs and pleura: There is a 3 mm subpleural pulmonary nodule seen involving the left lower lobe ant eriorly and inferiorly, as on series 4 image 229. No additional pulmonary nodules are seen. The central airways are patent. No pleural effusions or pneumothorax can be seen. No focal infiltra la are seen. Mediastinum: Heart size is normal. No pericardial effusion. There is moderate coronary artery calci fication No mediastinal adenopathy by size criteria. Thoracic aorta and central pulmonary arteries a re normal in size. Esophagus is normal in caliber. No hiatal hernia. Bones and chest wall: No suspicious bony lesions. No vertebral body compression fractures. No axil tim or supraclavicular adenopathy by size criteria. The thyroid is normal in size. Abdomen: Water density likely cysts are seen within the right lobe the liver, which measure up to 2 c m on the current study. The visualized portions of the upper abdominal structures are otherwise withi n normal limits. IMPRESSION: There is a 3 mm subpleural pulmonary nodule seen involving the left lower lobe, which most likely rep resents a benign subpleural lymph node. Incidental note is made of: Moderate coronary artery calcification Likely liver cysts Lung-RADS category: 2 Recommend annual low-dose CT chest screening examinations, as long as the patient meets the published screening criteria. Reviewed by: Dimas Perkins MD on 07/02/2020 9:28 AM RUST Approved by: Dimas Perkins MD on 07/02/2020 9:28 AM RUST Station ID: [id number]
== END 2020-07-02 09:58 | disposition home or self-care (01) ==
LOC: DI 09:57
PROVIDERS: ATTEND Family Medicine
DX: Z12.2 Encounter for screening for malignant neoplasm of respiratory organs (principal); Z87.891 Personal history of nicotine dependence; R91.1 Solitary pulmonary nodule

== ENCOUNTER 2021-04-03 09:46 | Outpatient (CLI) | payer OTHER ==
--- NOTE | 2021-04-03 13:00 | SLEEP CARE CONSULTATION ---
Information from patient questionnaire entered by Linnea Daugherty. I have reviewed and concur with the information entered by Linnea Daugherty. This document represents the service I personally performed and the decisions made by me, Tyler Skelton MD, [facility]. History of Present Illness Service Date and Time: 04/03/2021 0946 Previous diagnosis: Severe, Obstructive Sleep Apnea-Hypopnea Syndrome AHI: 39.0 Reason for follow up: annual (Discuss recall of CPAP) Equipment type: CPAP Equipment obtained from: [employer] Mask style: Nasal pillows Prior sleep studies: Yes Year and Where: 2008 [facility] Type of Sleep Study: Polysomnography HPI additional information: Mr. Hernandez returned today for follow up of nasal CPAP therapy. He was diagnosed to have severe obstructive sleep apnea-hypopnea syndrome. The patient wears a ResMed N30i mask. He reports using the device nightly and all through the night. The compliance report shows usage in 180 nights out of the past 180 nights, averaging 7.8 hours a night. The > 4 hour compliance rate for the past 180 days is 100%. He complained of no particular problem with the device such as soreness on the face, dry nose, epistaxis, nasal congestion or headache. He thinks that the pressure of 12 14 cmH2O is comfortable. On the CPAP therapy he notices improvement in his sleep quality, and that he wakes up feeling fresher in the morning and more awake/alert during the day. [place] Sleepiness Scale score is 0. The average residual AHI is 7.4 (was 6.6); and average time in large leak per day is 9 seconds. The 90th percentile pressure is 14 cmH2O. He just received the new Respironics DreamStation 2 to replace his old DreamStation 1. Sleep Study - Results Prior sleep studies: Yes Year and Where: 2008 [facility] CPAP Compliance Data - Data Reviewed with Patient Average duration of nightly device use: 7 hours 47 minutes Compliance rate %: 99.4 Current pressure setting (cmH2O): 12-14 Heated hose settin Average residual AHI: 7.4 Average large leak: 9 seconds Subjective Current pressure setting perceived as: comfortable Initial [place] Sleepiness Scale score: 9 Current [place] Sleepiness Scale score: 0 Allergies and Home Medications Drug allergies reviewed: Yes Home medication list reviewed: Yes Review of Systems Review of systems same as previous: Yes Physical Exam Height: 5 ft 8 in Weight: 197 lb Body Mass Index: 29.9 BMI Classification: Overweight Impression and Plan IMPRESSION: 1. Obstructive Sleep Apnea-Hypopnea Syndrome, severe, with the patient doing wel l on nasal CPAP therapy. He has excellent compliance and significant clinical improvement. The new autoCPAP set at the same setting appears to be effective. I will not make any changes today. PLAN: 1. Leave the autoCPAP at 12 - 14 cmH2O. 2. Try to lose weight 3. Return in one year for follow up or earlier if there is any problem with the treatment. Follow up with Sleep Care in: 1 year Follow up recommended for: Weight management Visit Type: In Office Time Spent with Patient (minutes): 15 Provider Statement: I spent 100% of the Face to Face Visit with the patient with greater than 50% spent counseling the patient and coordination of care.
== END 2021-04-03 09:47 | disposition home or self-care (01) ==
LOC: SC 09:46
PROVIDERS: ATTEND Internal Medicine Pulmonary Disease
DX: G47.33 Obstructive sleep apnea (adult) (pediatric) (principal); E66.3 Overweight; Z68.29 Body mass index [BMI] 29.0-29.9, adult
CPT/HCPCS: 99212

== ENCOUNTER 2021-07-05 09:12 | Outpatient (CLI) | payer OTHER ==
[2021-07-05 12:43] LABS: BASOPHILS % (AUTO) 0.4 %; EOSINOPHILS # (AUTO) 0.2 10^3/uL (0.0-0.7); HCT - HEMATOCRIT 40.9 % (42.0-52.0); HGB - HEMOGLOBIN 13.7 g/dL (14.0-18.0); LYMPHOCYTES # (AUTO) 2.7 10^3/uL (1.5-3.5); LYMPHOCYTES % (AUTO) 36.6 %; MEAN CORPUSCULAR HEMOGLOBIN 32.2 pg (27.0-31.0); MEAN CORPUSCULAR HGB CONC 33.5 g/dL (32.0-36.0); MEAN CORPUSCULAR VOLUME 96.2 fL (80.0-94.0); MEAN PLATELET VOLUME 10.2 fL (7.4-11.4); MONOCYTES # (AUTO) 0.6 10^3/uL (0.0-1.0); MONOCYTES % (AUTO) 8.2 %; NEUTROPHILS # (AUTO) 3.8 10^3/uL (1.5-6.6); NEUTROPHILS % (AUTO) 51.7 %; PLT - PLATELET COUNT 200 10^3/uL (130-450); RED BLOOD COUNT 4.25 10^6/uL (4.70-6.10); RED CELL DISTRIBUTION WIDTH 12.8 % (12.0-15.0); WHITE BLOOD COUNT 7.3 x10^3/uL (4.8-10.8)
[2021-07-05 12:58] LABS: ALBUMIN 4.7 g/dL (3.2-5.5); ALBUMIN/GLOBULIN RATIO 1.8 (1.0-2.2); ALKALINE PHOSPHATASE 44 IU/L (42-121); ALT ALANINE AMINOTRANSFERASE 26 IU/L (10-60); AST ASPARTATE AMINOTRANSFERASE 22 IU/L (10-42); BILIRUBIN,TOTAL 0.9 mg/dL (0.2-1.0); BUN - BLOOD UREA NITROGEN 30 mg/dL (6-20); CALCIUM 10.3 mg/dL (8.5-10.3); CARBON DIOXIDE - CO2 25 mmol/L (21-32); CHLORIDE 100 mmol/L (101-111); CHOL/HDL RATIO 4.1 (<5.0); CHOLESTEROL 180 mg/dL; CREATININE 1.2 mg/dL (0.6-1.2); GFR - MDRD 61 (>89); GLUCOSE 94 mg/dL (70-100); HDL CHOLESTEROL 44 mg/dL; LDL CHOLESTEROL,CALCULATED 105 mg/dL; LDL/HDL RATIO 2.4 (<3.6); POTASSIUM 4.5 mmol/L (3.5-5.0); SODIUM 134 mmol/L (135-145); TOTAL PROTEIN 7.3 g/dL (6.7-8.2); TRIGLYCERIDES 153 mg/dL; VLDL CHOLESTEROL 31 mg/dL
--- NOTE | 2021-07-05 16:25 | CT Report ---
PROCEDURE: Low Dose Lung Cancer Screen INDICATIONS: NICOTINE ADDICTION IN REMISSION TECHNIQUE: Noncontrast low-dose images were acquired from the pulmonary apices to the posterior costophrenic ang les. Multiplanar MIP reformats were then acquired. For radiation dose reduction, the following was used: automated exposure control, adjustment of mA and/or kV according to patient size. COMPARISON: 07/02/2020. FINDINGS: Image quality: Diagnostic given low radiation dose. Lungs and pleura: A small 3 mm subpleural nodule in the left lower lobe on series 4 image 220 appear s stable in size. A small 3 mm nodule in the left lower lobe on series 4 image 163 is also stable. No new suspicious nodules or mass lesions. No acute consolidation. No pleural effusions or pneumothorax . The trachea and central airways are patent. Mediastinum: Heart size is normal. No pericardial effusion. There is mild to moderate coronary odalis rial basket calcifications. No mediastinal adenopathy by size criteria. Thoracic aorta and central p ulmonary arteries are normal in size. Esophagus is normal in caliber. No hiatal hernia. Bones and chest wall: No suspicious bony lesions. No vertebral body compression fractures. No axil tim or supraclavicular adenopathy by size criteria. The thyroid demonstrates no discrete nodules. Abdomen: Limited evaluation of the upper abdomen due to low radiation dose demonstrates 3 small hypod ense lesions within the liver which appears similar to the prior study and likely represent cysts. IMPRESSION: 1. Stable 3 mm pulmonary nodules in the left lower lobe. Lung RADS 2: Recommend continued annual screening CT. Reviewed by: Riki Sorto MD on 07/05/2021 4:24 PM PST Approved by: Riki Sorto MD on 07/05/2021 4:24 PM PST Station ID: [id number]
[2021-07-06 18:53] LABS: ESTIMATED AVERAGE GLUCOSE 134 mg/dL (70-100); HEMOGLOBIN A1c% 6.3 % (4.27-6.07)
== END 2021-07-05 09:13 | disposition home or self-care (01) ==
LOC: DI 09:12
PROVIDERS: ATTEND Family Medicine
DX: Z12.2 Encounter for screening for malignant neoplasm of respiratory organs (principal); Z87.891 Personal history of nicotine dependence; R91.8 Other nonspecific abnormal finding of lung field; E11.9 Type 2 diabetes mellitus without complications
CPT/HCPCS: 36415; 80053; 80061; 83036; 83721; 85025

== ENCOUNTER 2022-01-10 23:42 | Emergency (ER) | payer MEDICARE, OTHER ==
--- NOTE | 2022-01-11 01:12 | ED Physician Documentation ---
PD HPI LOWER EXT INJURY - Stated complaint Stated Complaint: L KNEE INFECTION - Chief complaint Chief Complaint: Ext Problem - History obtained from History obtained from: Patient - History of Present Illness PD HPI LOW EXT INJURY LOCATION: Left Timing - onset: Today - Additional information Additional information: 66-year-old male with history of hypertension, prediabetes presents by private vehicle for 1 day of left knee swelling and left lower extremity swelling. Patient states that he has been on his knees for the last few days laying linoleum on his floor. He states that he has had bursitis in the past and his knee began to have a scab on it. The knee became somewhat red and swollen, and he has been taking Tylenol and Motrin for it. This evening he took his pants off to go to bed and noticed that his left ankle was swollen compared to the right ankle. He presented for evaluation. Patient denies fevers, chills, difficulty walking, numbness, weakness, tingling, recent surgeries or immobilizations, history of blood clots. Review of Systems Ten Systems: 10 systems reviewed and negative Constitutional: denies: Fever, Chills Cardiac: denies: Chest pain / pressure, Palpitations Respiratory: denies: Dyspnea, Cough Skin: reports: Other (erythema). denies: Lesions Musculoskeletal: reports: Joint pain, Joint swelling. denies: Pain with weight bearing PD PAST MEDICAL HISTORY - Past Medical History Past Medical History: Yes Cardiovascular: Hypertension, High cholesterol Respiratory: Sleep apnea, CPAP use Endocrine/Autoimmune: Type 2 diabetes GI: Colon polyps, Hemorrhoids : Kidney stones HEENT: None Psych: None Musculoskeletal: Osteoarthritis Derm: Other - Past Surgical History Past Surgical History: Yes General: Colonoscopy Ortho: Hip replacement HEENT: Tonsil/Adenoidectomy - Present Medications Home Medications: Ambulatory Orders Medication Instructions Recorded Confirmed Aspirin EC [Ecotrin] 81 mg PO DAILY 05/15/13 11/19/17 Simvastatin [Zocor] 40 mg PO QPM 05/15/13 11/19/17 hydroCHLOROthiazide [Hydrodiuril] 25 mg PO DAILY 05/15/13 11/19/17 lisinopriL [Zestril] 40 mg PO DAILY 05/15/13 11/19/17 metFORMIN [Glucophage] 500 mg PO DAILY 11/17/16 11/19/17 cephALEXin [Keflex] 500 mg PO Q6H #28 cap 01/11/22 - Allergies Allergies/Adverse Reactions: Allergies Allergy/AdvReac Type Severity Reaction Status Date / Time No Known Drug Allergies Allergy Verified 01/10/22 23:58 - Social History Does the pt smoke?: Yes Smoking Status: Current every day smoker Does the pt drink ETOH?: No Does the pt have substance abuse?: No - Immunizations Immunizations are current?: Yes - POLST Patient has POLST: No PD ED PE NORMAL - Vitals Vital signs reviewed: Yes - General General: Alert and oriented X 3, No acute distress, Well developed/nourished - HEENT HEENT: Atraumatic, PERRL, EOMI - Neck Neck: Supple, no meningeal sign, No bony TTP, C-Spine cleared by NEXUS criteria - Cardiac Cardiac: RRR, No rub, Strong equal pulses - Respiratory Respiratory: No respiratory distress, Clear bilaterally - Abdomen Abdomen: Soft, Non tender, Non distended - Derm Derm: Warm and dry, No rash, Other (erythema of knee) - Extremities Extremities: Normal ROM s pain, Other (1+ nonpitting edema L ankle, normal R ankle. Erythema R patellar region, rull ROM without pain) - Neuro Neuro: Alert and oriented X 3, dinkey skinner 2-12 intact, No motor deficit, No sensory deficit, Normal speech - Psych Psych: Normal mood, Normal affect Results - Vitals Vitals: Vital Signs - 24 hr 01/10/22 01/11/22 23:52 01:19 Temperature 36.9 C 36.8 C Heart Rate 60 66 Respiratory 14 16 Rate Blood Pressure 147/67 H 138/62 H O2 Saturation 98 97 Oxygen O2 Source [With Activity] Room air O2 Source [Without Activity] Room air O2 Source Room air PD MEDICAL DECISION MAKING - ED course Complexity details: reviewed results ED course: Well-appearing male with left knee pain and left ankle swelling. [id number] ultrasound performed by myself shows compressibility throughout all deep venous tracts. Patient does have cellulitis overlying the knee, however has full range of motion and painless range of motion, 2+ DP pulses, sensation intact and equal bilaterally. Denies recent history of antibiotic use. Swelling likely secondary to cellulitis. 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 Patient counseled to continue Tylenol Motrin as needed for pain and swelling, to apply ice as needed, and to elevate his extremity when resting. PCP follow-up advised. Departure - Departure Disposition: Home, Self Care Clinical Impression: Cellulitis Qualifiers: Site of cellulitis: extremity Site of cellulitis of extremity: lower extremity Laterality: left Qualified Code(s): L03.116 - Cellulitis of left lower limb Clinical Impression: (Ruled Out): Deep vein thrombosis Condition: Stable Instructions: Bursitis, Cellulitis Dc Prescriptions: cephALEXin [Keflex] 500 mg PO Q6H #28 cap Discharge Date/Time: 01/11/22 01:19
[2022-01-11 01:20] VITALS: BP 138/62
== END 2022-01-11 01:19 | disposition home or self-care (01) ==
LOC: ED 23:42
DX: L03.116 Cellulitis of left lower limb (principal); F17.200 Nicotine dependence, unspecified, uncomplicated
CPT/HCPCS: 99282; 99284

== ENCOUNTER 2022-04-09 14:44 | Outpatient (CLI) | payer MEDICARE ==
[2022-04-09 15:18] VITALS: BP 122/64
--- NOTE | 2022-04-09 15:18 | SLEEP CARE CONSULTATION ---
Information from patient questionnaire entered by Carmita Penny. I have reviewed and concur with the information entered by Carmita Penny. This document represents the service I personally performed and the decisions made by me, Tyler Skelton MD, [facility]. History of Present Illness Service Date and Time: 04/09/2022 1444 Previous diagnosis: Severe, Obstructive Sleep Apnea-Hypopnea Syndrome AHI: 39.0 Reason for follow up: annual (LAST SEEN 03/2021) Equipment type: CPAP (DREAMSTATION) Equipment obtained from: [employer] Mask style: Nasal pillows Prior sleep studies: Yes Year and Where: 2008 [facility] Type of Sleep Study: Polysomnography HPI additional information: Mr. Hernandez returned today for an annual follow up of nasal CPAP therapy. He was diagnosed to have severe obstructive sleep apnea-hypopnea syndrome. The patient wears a ResMed N30i mask. He reports using the [employer] DreamStation 2 autoCPAP nightly and all through the night. The compliance report shows usage in 28 nights out of the past 30 nights, averaging 9.6 hours a night. The > 4-hour compliance rate for the past 30 days is 93.3%. He complained of no particular problem with the device such as soreness on the face, dry nose, epistaxis, nasal congestion or headache. He thinks that the pressure of 12 14 cmH2O is comfortable. On the CPAP therapy he notices improvement in his sleep quality, and that he wakes up feeling fresher in the morning and more awake/alert during the day. [place] Sleepiness Scale score is 0. The average residual AHI is 3.1 (was 7.4); and average time in large leak per day is 0 seconds. The 90th percentile pressure is 13 cmH2O. Sleep Study - Results Type of Sleep Study: Polysomnography Prior sleep studies: Yes Year and Where: 2008 [facility] CPAP Compliance Data - Data Reviewed with Patient Average duration of nightly device use: 8HRS,41IN,30SEC Compliance rate %: 99.4 (10/09/2018-04/06/2019) Current pressure setting (cmH2O): 13 Average residual AHI: 2.5 Subjective Initial [place] Sleepiness Scale score: 9 Current [place] Sleepiness Scale score: 1 (04/09/2022) Allergies and Home Medications Drug allergies reviewed: Yes Home medication list reviewed: Yes Allergy and home medication list: Allergies No Known Drug Allergies Allergy (Verified 01/14/22 17:43) Review of Systems Review of systems same as previous: Yes Physical Exam Vital signs obtained and entered by: CARMITA Jimenez MA Blood Pressure: 122/64 (left arm) Cuff size: regular Heart Rate: 54 O2 Saturation: 97 Height: 5 ft 8 in Weight: 200 lb 3.2 oz Body Mass Index: 30.4 BMI Classification: Obese Impression and Plan IMPRESSION: 1. Obstructive Sleep Apnea-Hypopnea Syndrome, severe, with the patient doing well on nasal CPAP therapy. He has excellent compliance and significant clinical improvement. The new autoCPAP set at the same setting appears to be effective. I will not make any changes today. PLAN: 1. Leave the autoCPAP at 12 - 14 cmH2O. 2. Try to lose weight 3. Return in one year for follow up or earlier if there is any problem with the treatment. Follow up with Sleep Care in: 1 year Visit Type: In Office Time Spent with Patient (minutes): 15 Provider Statement: I spent 100% of the Face to Face Visit with the patient with greater than 50% spent counseling the patient and coordination of care.
== END 2022-04-09 14:45 | disposition home or self-care (01) ==
LOC: SC 14:44
PROVIDERS: ATTEND Internal Medicine Pulmonary Disease
DX: G47.33 Obstructive sleep apnea (adult) (pediatric) (principal); E66.9 Obesity, unspecified; Z68.30 Body mass index [BMI] 30.0-30.9, adult
CPT/HCPCS: 99212; G0463

== ENCOUNTER 2022-06-26 13:20 | Outpatient (CLI) | payer MEDICARE ==
--- NOTE | 2022-06-26 17:19 | CT Report ---
PROCEDURE: Low Dose Lung Cancer Screen INDICATIONS: NICOTINE ADDITION TECHNIQUE: Noncontrast low-dose axial images were acquired from the pulmonary apices to the posterior costophren ic angles. Multiplanar MIP reformats were then reconstructed. For radiation dose reduction, the follo wing was used: automated exposure control, adjustment of mA and/or kV according to patient size. COMPARISON: Screening CT chest 07/05/2021, 07/02/2020 FINDINGS: Image quality: Excellent. Lungs and pleura: No effusions or consolidations. Previous 3 mm subpleural nodule in the lateral lef t lower lobe on series 4 image 209 is unchanged. No new nodules are identified. Mediastinum: Heart size is normal. No pericardial effusion. No mediastinal adenopathy by size crit eria. Thoracic aorta and central pulmonary arteries are normal in size. Esophagus is normal in todd seema. No hiatal hernia. Bones and chest wall: No suspicious bony lesions. No vertebral body compression fractures. No axil tim or supraclavicular adenopathy by size criteria. The thyroid is normal in size and there are no incidental findings. Abdomen: Hepatic hypodensities suggestive of simple cysts are unchanged. Mild enlargement of left ad renal gland is also unchanged. Otherwise, visualized upper abdomen solid organs and bowel loops appea r normal in the absence of contrast. IMPRESSION: Stable interval exam compared to 07/05/2021. Lung RADS category 2: Recommend continued annual screening CT. CLINICAL RECOMMENDATION STATEMENTS: In patients <35 years with an ITN detected on CT, MRI, or extrathyroidal ultrasound, the Committee re commends further evaluation with dedicated thyroid ultrasound if the nodule is "e1 cm and has no susp icious imaging features, and if the patient has normal life expectancy. In patients "e35 years with an ITN detected on CT, MRI, or extrathyroidal ultrasound, the Committee r ecommends further evaluation with dedicated thyroid ultrasound if the nodule is "e1.5 cm and has no s uspicious imaging features, and if the patient has normal life expectancy. (ACR, 2014) Reviewed by: Ashley Preciado MD on 06/26/2022 5:17 PM PST Approved by: Ashley Preciado MD on 06/26/2022 5:17 PM PST Station ID: [id number]
== END 2022-06-26 13:21 | disposition home or self-care (01) ==
LOC: DI 13:20
PROVIDERS: ATTEND Physician Assistant
DX: Z12.2 Encounter for screening for malignant neoplasm of respiratory organs (principal); F17.201 Nicotine dependence, unspecified, in remission

== ENCOUNTER 2022-08-08 07:38 | Outpatient (CLI) | payer MEDICARE ==
[2022-08-08 12:17] LABS: BASOPHILS % (AUTO) 0.2 %; EOSINOPHILS # (AUTO) 0.1 10^3/uL (0.0-0.7); EOSINOPHILS % (AUTO) 1.5 %; HCT - HEMATOCRIT 41.7 % (42.0-52.0); HGB - HEMOGLOBIN 13.3 g/dL (14.0-18.0); LYMPHOCYTES # (AUTO) 2.1 10^3/uL (1.5-3.5); LYMPHOCYTES % (AUTO) 22.9 %; MEAN CORPUSCULAR HEMOGLOBIN 31.7 pg (27.0-31.0); MEAN CORPUSCULAR HGB CONC 31.9 g/dL (32.0-36.0); MEAN CORPUSCULAR VOLUME 99.5 fL (80.0-94.0); MEAN PLATELET VOLUME 10.2 fL (7.4-11.4); MONOCYTES # (AUTO) 0.7 10^3/uL (0.0-1.0); MONOCYTES % (AUTO) 7.4 %; NEUTROPHILS # (AUTO) 6.2 10^3/uL (1.5-6.6); NEUTROPHILS % (AUTO) 67.7 %; PLT - PLATELET COUNT 215 10^3/uL (130-450); RED BLOOD COUNT 4.19 10^6/uL (4.70-6.10); RED CELL DISTRIBUTION WIDTH 13.2 % (12.0-15.0); WHITE BLOOD COUNT 9.2 x10^3/uL (4.8-10.8)
[2022-08-08 12:40] LABS: ALBUMIN 4.6 g/dL (3.2-5.5); ALBUMIN/GLOBULIN RATIO 1.6 (1.0-2.2); ALKALINE PHOSPHATASE 55 IU/L (42-121); ALT ALANINE AMINOTRANSFERASE 16 IU/L (10-60); AST ASPARTATE AMINOTRANSFERASE 17 IU/L (10-42); BILIRUBIN,TOTAL 1.1 mg/dL (0.2-1.0); BUN - BLOOD UREA NITROGEN 32 mg/dL (6-20); CALCIUM 10.3 mg/dL (8.5-10.3); CARBON DIOXIDE - CO2 29 mmol/L (21-32); CHLORIDE 100 mmol/L (101-111); CHOLESTEROL 163 mg/dL; CREATININE 1.6 mg/dL (0.6-1.2); ESTIMATED AVERAGE GLUCOSE 126 mg/dL (70-100); GFR - MDRD 43 (>89); GLUCOSE 104 mg/dL (70-100); HDL CHOLESTEROL 55 mg/dL; LDL CHOLESTEROL,CALCULATED 86 mg/dL; LDL/HDL RATIO 1.6 (<3.6); POTASSIUM 4.3 mmol/L (3.5-5.0); SODIUM 138 mmol/L (135-145); TOTAL PROTEIN 7.5 g/dL (6.7-8.2); TRIGLYCERIDES 109 mg/dL; VLDL CHOLESTEROL 22 mg/dL
[2022-08-08 12:48] LABS: CREATININE,URINE 169.1 mg/dL
== END 2022-08-08 07:39 | disposition home or self-care (01) ==
LOC: LAB.N 07:38
PROVIDERS: ATTEND Physician Assistant
DX: E11.9 Type 2 diabetes mellitus without complications (principal); Z12.5 Encounter for screening for malignant neoplasm of prostate
CPT/HCPCS: 36415; 80053; 80061; 82043; 82570; 83036; 85025; G0103; 83721; 84153

== ENCOUNTER 2022-08-09 11:33 | Outpatient (CLI) | payer MEDICARE ==
[2022-08-09 17:50] LABS: CALCIUM 10.4 mg/dL (8.5-10.3); CREATININE 1.5 mg/dL (0.6-1.2); POTASSIUM 4.5 mmol/L (3.5-5.0)
[2022-08-09 17:58] LABS: CREATININE,URINE 106.4 mg/dL
== END 2022-08-09 11:34 | disposition home or self-care (01) ==
LOC: LAB.N 11:33
PROVIDERS: ATTEND Family Medicine
DX: N28.9 Disorder of kidney and ureter, unspecified (principal)
CPT/HCPCS: 36415; 80048; 82570; 84300

== ENCOUNTER 2022-08-15 14:36 | Outpatient (CLI) | payer MEDICARE ==
--- NOTE | 2022-08-15 17:32 | Ultrasound Report ---
PROCEDURE: Retroperitoneal INDICATIONS: ACUTE RENAL INSUFFICIENCY TECHNIQUE: Real-time scanning was performed of the retroperitoneal organs, with image documentation. COMPARISON: None. FINDINGS: Kidneys: Kidneys are normal in size. Right kidney measures 11.3 cm long; left kidney measures 10.6 cm long. Right renal cortical thickness is 1.8 cm; left renal cortical thickness is 1.5 cm. No lisset d masses, hydronephrosis, or nephrolithiasis. There are multiple bilateral renal cysts. The largest right cyst measures 3.7 cm in diameter and the largest left measures 1.5 cm in diameter. Bladder: Pre-void bladder volume is 663.6 mL. Post-void residual is 576.6 mL. Pre-void images demo nstrate no intraluminal masses or stones. On pre-void images, I lateral ureteral jets are noted with color Doppler interrogation. (Of note, ureteral jets may not be detectable in up to 25% of cases du e to insufficient differences in specific gravity between ureteral and bladder urine). The prostate measures 4.8 x 6.7 x 5.6 cm. Miscellaneous: No free abdominal fluid. IMPRESSION: 1. No hydronephrosis. 2. Polycystic kidneys. 3. Very large post void residual. 4. Prostatomegaly. Reviewed by: Lisa Underwood MD on 08/15/2022 5:31 PM PST Approved by: Lisa Underwood MD on 08/15/2022 5:31 PM PST Station ID: [id number]
== END 2022-08-15 14:37 | disposition home or self-care (01) ==
LOC: DI 14:36
PROVIDERS: ATTEND Family Medicine
DX: Q61.3 Polycystic kidney, unspecified (principal); N40.0 Benign prostatic hyperplasia without lower urinary tract symptoms

== ENCOUNTER 2022-09-21 10:52 | Outpatient (CLI) | payer MEDICARE ==
[2022-09-21 17:56] LABS: CALCIUM 9.6 mg/dL (8.5-10.3); CREATININE 1.2 mg/dL (0.6-1.2); POTASSIUM 4.5 mmol/L (3.5-5.0)
[2022-09-21 18:01] LABS: CREATININE,URINE 73.7 mg/dL
== END 2022-09-21 10:53 | disposition home or self-care (01) ==
LOC: LAB.N 10:52
PROVIDERS: ATTEND Physician Assistant
DX: N28.9 Disorder of kidney and ureter, unspecified (principal)
CPT/HCPCS: 36415; 80048; 82570; 84300

== ENCOUNTER 2022-10-31 15:33 | Outpatient (CLI) | payer MEDICARE ==
[2022-10-31 17:40] LABS: CALCIUM 9.6 mg/dL (8.5-10.3); CREATININE 1.2 mg/dL (0.6-1.2); POTASSIUM 4.1 mmol/L (3.5-5.0)
== END 2022-10-31 15:34 | disposition home or self-care (01) ==
LOC: LAB.N 15:33
PROVIDERS: ATTEND Physician Assistant
DX: Q61.3 Polycystic kidney, unspecified (principal)
CPT/HCPCS: 36415; 80048

== ENCOUNTER 2022-11-16 00:52 | Emergency (ER) | payer MEDICARE ==
[2022-11-16 01:11] VITALS: BP 185/65
--- NOTE | 2022-11-16 01:42 | ED Physician Documentation ---
History of Present Illness - Stated complaint Stated Complaint: LT LEG PX - Chief complaint Chief Complaint: General - History obtained from History obtained from: Patient - Additonal information Additional information: C7-year-old male presents for evaluation of an insect bite to his left thigh. Patient states that it has become red and pruritic. Denies swelling, severe pain.Denies other symptoms Review of Systems Skin: reports: Bite / sting PD PAST MEDICAL HISTORY - Past Medical History Cardiovascular: Hypertension, High cholesterol Respiratory: Sleep apnea, CPAP use Endocrine/Autoimmune: Type 2 diabetes GI: Colon polyps, Hemorrhoids : Kidney stones HEENT: None Psych: None Musculoskeletal: Osteoarthritis Derm: Other - Past Surgical History Past Surgical History: Yes General: Colonoscopy Ortho: Hip replacement HEENT: Tonsil/Adenoidectomy - Present Medications Home Medications: Ambulatory Orders Medication Instructions Recorded Confirmed Aspirin EC [Ecotrin] 81 mg PO DAILY 05/15/13 11/19/17 Simvastatin [Zocor] 40 mg PO QPM 05/15/13 11/19/17 hydroCHLOROthiazide [Hydrodiuril] 25 mg PO DAILY 05/15/13 11/19/17 lisinopriL [Zestril] 40 mg PO DAILY 05/15/13 11/19/17 metFORMIN [Glucophage] 500 mg PO DAILY 11/17/16 11/19/17 cephALEXin [Keflex] 500 mg PO Q6H #28 cap 01/11/22 cephALEXin [Keflex] 500 mg PO Q6H #28 cap 01/14/22 - Allergies Allergies/Adverse Reactions: Allergies Allergy/AdvReac Type Severity Reaction Status Date / Time No Known Drug Allergies Allergy Verified 01/14/22 17:43 - Social History Does the pt smoke?: Yes Smoking Status: Current every day smoker Does the pt drink ETOH?: No Does the pt have substance abuse?: No - Immunizations Immunizations are current?: Yes - POLST Patient has POLST: No PD ED PE NORMAL - Vitals Vital signs reviewed: Yes - General General: Alert and oriented X 3, No acute distress, Well developed/nourished - HEENT HEENT: Atraumatic, PERRL, EOMI - Derm Derm: Normal color, Warm and dry, Other (~4cm diameter erythema to L thigh with central insect bite. soft without induration. no evidence of purulence, cellulitis, or necrosis) Results - Vitals Vitals: Vital Signs - 24 hr 11/16/22 01:02 Temperature 36.2 C L Heart Rate 65 Respiratory 17 Rate Blood Pressure 185/65 H O2 Saturation 97 Oxygen O2 Source [With Activity] Room air O2 Source [Without Activity] Room air O2 Source Room air PD Medical Decision Making - ED course ED course: 67-year-old man presented with insect bite to left posterior thigh. local irritation only but no signs/symptoms of generalized allergic reaction. bite does not appear infected. recommended preventative antibiotic ointment alternating with hydrocortisone cream. Return precautions given. Departure - Departure Disposition: 01 Home, Self Care Clinical Impression: Insect bite Condition: Stable Instructions: Bites Stings Insect Comments: You are seen in the emergency department for an insect bite. You can apply local hydrocortisone cream to the area. Take tylenol 650 mg as needed for pain every 6 hours. You can also do Benadryl 50 mg every 6 hours for itching.Return to the emergency department if you have new or worsening symptoms or other concerns.
== END 2022-11-16 01:45 | disposition home or self-care (01) ==
LOC: ED 00:52
DX: S70.362A Insect bite (nonvenomous), left thigh, initial encounter (principal); W57.XXXA Bitten or stung by nonvenomous insect and other nonvenomous arthropods, initial encounter; F17.200 Nicotine dependence, unspecified, uncomplicated
CPT/HCPCS: 99281; 99282

== ENCOUNTER 2023-05-16 08:05 | Outpatient (CLI) | payer MEDICARE ==
[2023-05-16 12:12] LABS: BASOPHILS % (AUTO) 0.5 %; EOSINOPHILS # (AUTO) 0.2 10^3/uL (0.0-0.7); EOSINOPHILS % (AUTO) 2.4 %; HCT - HEMATOCRIT 41.3 % (42.0-52.0); HGB - HEMOGLOBIN 13.5 g/dL (14.0-18.0); LYMPHOCYTES # (AUTO) 2.2 10^3/uL (1.5-3.5); LYMPHOCYTES % (AUTO) 28.2 %; MEAN CORPUSCULAR HEMOGLOBIN 32.1 pg (27.0-31.0); MEAN CORPUSCULAR HGB CONC 32.7 g/dL (32.0-36.0); MEAN CORPUSCULAR VOLUME 98.3 fL (80.0-94.0); MEAN PLATELET VOLUME 10.1 fL (7.4-11.4); MONOCYTES # (AUTO) 0.7 10^3/uL (0.0-1.0); MONOCYTES % (AUTO) 8.5 %; NEUTROPHILS # (AUTO) 4.7 10^3/uL (1.5-6.6); NEUTROPHILS % (AUTO) 60.1 %; PLT - PLATELET COUNT 211 10^3/uL (130-450); RED CELL DISTRIBUTION WIDTH 13.2 % (12.0-15.0); WHITE BLOOD COUNT 7.9 x10^3/uL (4.8-10.8)
[2023-05-16 12:26] LABS: ESTIMATED AVERAGE GLUCOSE 126 mg/dL (70-100)
[2023-05-16 12:27] LABS: ALBUMIN 4.8 g/dL (3.2-5.5); ALBUMIN/GLOBULIN RATIO 2.4 (1.0-2.2); BILIRUBIN,TOTAL 0.7 mg/dL (0.2-1.0); CALCIUM 10.3 mg/dL (8.5-10.3); CREATININE 1.1 mg/dL (0.6-1.3); TOTAL PROTEIN 6.8 g/dL (6.4-8.9)
== END 2023-05-16 08:06 | disposition home or self-care (01) ==
LOC: LAB.N 08:05
PROVIDERS: ATTEND Physician Assistant
DX: E11.9 Type 2 diabetes mellitus without complications (principal); N40.1 Benign prostatic hyperplasia with lower urinary tract symptoms; N13.8 Other obstructive and reflux uropathy; Q61.3 Polycystic kidney, unspecified
CPT/HCPCS: 36415; 80053; 83036; 85025

== ENCOUNTER 2023-07-08 15:37 | Outpatient (CLI) | payer MEDICARE ==
--- NOTE | 2023-07-08 17:56 | CT Report ---
PROCEDURE: Lung Cancer Screen INDICATIONS: NICOTINE ADDICTION TECHNIQUE: A CT scan of the chest was performed. Intravenous contrast media was not administered. Images were re corded and evaluated at appropriate window settings. Reformats: axial MIP of the chest, coronal and s agittal. For radiation dose reduction, the following was used: automated exposure control, adjustment of mA and/or kV according to patient size. COMPARISON: LDCT chest dated 06/26/2022. FINDINGS: Image quality: Excellent. Prior cancer history: History of melanoma, excised Lungs and pleura: No pleural effusions. No pneumothorax. 3 mm nodule of the lateral left lower lobe appears unchanged (120/4) Mediastinum: Heart size is normal. No pericardial effusion. No large vessel abnormality. No mediastin al adenopathy by size criteria. Severe coronary calcifications noted. Chest wall and lower neck: Thyroid is unremarkable. No axillary or supraclavicular adenopathy by size . Bones: Diffuse idiopathic skeletal hyperostosis changes of the spine. Upper Abdomen: Unremarkable. IMPRESSION: Stable exam. Lung RAD: 2. Recommendation: Recommend continued annual screening CT. Non-Lung Significant Findings: Severe coronary calcifications noted.. Diffuse idiopathic skeletal hyp erostosis changes of the spine Reviewed by: Herb Jose MD on 07/08/2023 5:55 PM PST Approved by: Herb Jose MD on 07/08/2023 5:55 PM PST Station ID: [id number]
== END 2023-07-08 15:38 | disposition home or self-care (01) ==
LOC: DI 15:37
PROVIDERS: ATTEND Physician Assistant
DX: Z12.2 Encounter for screening for malignant neoplasm of respiratory organs (principal); F17.201 Nicotine dependence, unspecified, in remission; I25.10 Atherosclerotic heart disease of native coronary artery without angina pectoris; M48.10 Ankylosing hyperostosis [Forestier], site unspecified

== ENCOUNTER 2023-07-18 07:46 | Day surgery (SDC) | payer MEDICARE ==
[2023-07-18] MEDS: LACTATED RINGERS 1,000 ML IV ONE ×2 (07:50→09:33)
[2023-07-18] MEDS ORDERED: PROPOFOL 500 MG/50 ML 500 MG/50 ML VIAL ONE (08:07)
[2023-07-18] MEDS ORDERED: MIDAZOLAM 2 MG/2 ML VIAL ONE (08:09)
--- NOTE | 2023-07-18 08:44 | ANESTHESIA ---
Pre-Anesthesia VS, & Labs - Diagnosis hx polyps - Procedure colonoscopy Vital Signs: Temp Pulse Resp BP Pulse Ox O2 Flow Rate 36.4 C L 77 11 L 130/74 98 07/18/23 07:50 07/18/23 07:50 07/18/23 07:50 07/18/23 07:50 07/18/23 07:50 Height: 5 ft 8 in Weight (kg): 90.5 kg Body Mass Index: 30.3 BMI Classification: Obese - NPO >8 hours - Lab Results Current Lab Results: Laboratory Tests 07/18/23 08:26: POC Whole Bld Glucose 82 Lab results reviewed: Yes Home Medications and Allergies Aspirin EC [Ecotrin] 81 mg PO DAILY 05/15/13 Simvastatin [Zocor] 40 mg PO QPM 05/15/13 hydroCHLOROthiazide [Hydrodiuril] 25 mg PO DAILY 05/15/13 lisinopriL [Zestril] 40 mg PO DAILY 05/15/13 metFORMIN [Glucophage] 500 mg PO DAILY 11/17/16 Allergies/Adverse Reactions: Allergies Allergy/AdvReac Type Severity Reaction Status Date / Time No Known Drug Allergies Allergy Verified 01/14/22 17:43 Anes History & Medical History - Anesthetic History Anesthesia Complications: reports: No previous complications Family history of Anesthesia Complications: Denies - Medical History Cardiovascular: reports: Hypertension, High cholesterol Pulmonary: reports: Sleep apnea, CPAP use Gastrointestinal: reports: Colon polyps, Hemorrhoids Urinary: reports: Kidney stones Musculoskeletal: reports: Osteoarthritis Endocrine/Autoimmune: reports: Type 2 diabetes Skin: reports: Other Smoking Status: Current every day smoker - Surgical History General: reports: Colonoscopy Eyes Ears Nose Throat (EENT): reports: Tonsil/Adenoidectomy Orthopedic: reports: Hip replacement Exam General: Alert, Oriented x3, Cooperative Dental: WNL Mouth Openin Fingerbreadth Neck Mobility: Normal Mallampati classification: II Thyromental Distance: 4-6 cm Respiratory: Lungs clear, Normal breath sounds, No respiratory distress Cardiovascular: Regular rate Mental/Cognitive Status: Alert/Oriented X3, Normal for patient Cognitive Status: Within normal limits Plan Anesthesia Type: Total IV Consent for Procedure(s) Verified and Reviewed: Yes Code Status: Attempt Resuscitation ASA classification: 2-Mild systemic disease Is this case an emergency?: No
[2023-07-18 09:44] VITALS: O2SAT 97
[2023-07-18 10:04] VITALS: BP 127/63
--- NOTE | 2023-07-18 11:24 | ANESTHESIA POST OP EVALUATION ---
Anesthesia Post Eval - Post Anesthesia Eval Vitals: Last Vital Signs Temp 36.9 C 07/18/23 09:37 Pulse 61 07/18/23 09:37 Resp 16 07/18/23 09:37 BP 127/63 07/18/23 09:58 Pulse Ox 97 07/18/23 09:37 O2 Flow Rate CV Function Including HR & BP: Stable Pain Control: Satisfactory Nausea & Vomiting: Negative Mental Status: Baseline Respiratory Status: Airway Patent Hydration Status: Satisfactory Anesthesia Complications: None
== END 2023-07-18 07:47 | disposition home or self-care (01) ==
LOC: SDS 07:46
PROVIDERS: ATTEND Surgery
PROC: 0DBP8ZZ Excision of Rectum, Via Natural or Artificial Opening Endoscopic (ICD-10-PCS; principal; 2023-07-18 09:15)
DX: Z12.11 Encounter for screening for malignant neoplasm of colon (principal); K62.1 Rectal polyp; K64.4 Residual hemorrhoidal skin tags; E66.9 Obesity, unspecified; E11.9 Type 2 diabetes mellitus without complications; F17.200 Nicotine dependence, unspecified, uncomplicated; G47.33 Obstructive sleep apnea (adult) (pediatric); Z79.84 Long term (current) use of oral hypoglycemic drugs; Z68.30 Body mass index [BMI] 30.0-30.9, adult
CPT/HCPCS: 45380; J7120

== ENCOUNTER 2023-09-24 09:13 | Outpatient (CLI) | payer MEDICARE ==
--- NOTE | 2023-09-24 09:47 | CARDIAC PROCEDURE NOTE ---
Stress Test Report Service Date: 09/24/23 Service Time: 09:30 Ordering Provider: Claribel Palomo PA-C Indication for Test: Assess for inducible ischemia in an asymptomatic gentleman with multiple CAD risk factors, recently found to have severe coronary artery calcifications on a chest CT scan, performed to screen for lung cancer. Significant Medical History: Lu is referred for a treadmill stress echocardiogram today, to assess the finding of "severe coronary calcifications" seen on a screening CT scan, done for lung cancer surveillance given his extensive smoking history. He has a very positive complex CAD risk profile as documented in detail below. He had succeeded at stopping cigarette smoking back in 2018 but resumed several months ago and is trying to quit again. He reports being moderately active, walking his 30 pound dog daily on a route that includes some inclines, without experiencing chest pain under these conditions (or at other times). If he walks too fast he experiences shortness of breath, but it is typically not severe enough to cause him to stop walking. He has been compliant with CPAP use and taking his medications, as evidenced by favorable lipid profile on long-term simvastatin treatment. He remains on daily baby aspirin as a precaution. Cardiac Risk Factors: Positive for hypertension (treated greater than 20 years); hyperlipidemia (treated for many years with simvastatin, with fasting lipids in 08/09 that included TChol 163, LDLc 86, HDLc 55, TG 109); history of prediabetes on metformin; family history of coronary artery disease (most notable for father with premature disease including CABG at 52 as well as other males in the family); cigarette smoking with 40-year history (quit in 2018 but resumed again a few months ago and is now smoking about 1/2 pack/day); also has the modifying risk factor of obstructive sleep apnea treated with CPAP Type of Stress Test: ETT with Echocardiography Procedure: -Exercise Treadmill Test- After signing informed consent, the patient underwent echo imaging at rest and then performed treadmill exercise using a Francesco protocol. The patient exercised for 9 minutes 31 seconds and achieved a peak heart rate of 129 (85 percent predicted maximum heart rate for age), and an estimated workload of 11 METS. The test was terminated due to fatigue/shortness of breath. Resting heart rate: 57 Peak heart rate: 129 Normal response to exercise. Resting BP: 133/69 Peak BP: 228/72 Hypertensive BP response to exercise. Room air oxygen saturation ranged between 94-96% throughout. Rhythm during exercise: Sinus rhythm with rare PACs and no PVCs noted. Symptoms: He denied experiencing any chest pressure/discomfort/pain; dyspnea became limiting. EKG at rest showed sinus bradycardia, normal in all aspects. EKG at peak stress showed J-point depression with upsloping ST segments, NOT meeting diagnostic criteria for ischemia. In Recovery HR decreased rapidly/normally with concomitant normalization of BP (121/79 at ~7:00). Echo imaging, performed at rest and with stress, will be reported separately. I, Andre Escobedo MD, was present throughout this treadmill stress study and supervised it in its entirety. Summary: 1) Exercise tolerance markedly above average for age and sex as evidenced by JULIO of -28%. 2) Normal resting EKG. 3) Adequate level of exercise was achieved on this treadmill stress test. 4) Abnormal hypertensive BP response to exercise. 5) No ischemic changes by EKG criteria were seen at peak stress. 6) Echo image interpretation reveals normal resting left ventricular size and systolic function with mild concentric left ventricular hypertrophy; with exercise there was appropriate hyperdynamic augmentation of all segments, indicating no evidence of prior infarct or inducible ischemia. No significant valvular abnormality or elevation of estimated pulmonary artery systolic pressure seen on screening study. See separate report for more details. Conclusions and Recommendations: 1) This is a very reassuring treadmill stress echocardiogram, with no symptom, EKG or echocardiographic evidence of inducible ischemia. 2) Lu is encouraged to continue make all efforts to (re)-discontinue tobacco smoking and to remain compliant with his other treatments, including CPAP. 3) I think it is reasonable for him to remain on a daily aspirin, as it is really for secondary prevention of atherosclerotic events given his severe coronary artery calcification, albeit without obstructive CAD currently demonstrable. This is also likely advisable in the event that he is unable to discontinue smoking cigarettes in the future.
== END 2023-09-24 09:14 | disposition home or self-care (01) ==
LOC: DI 09:13
PROVIDERS: ATTEND Physician Assistant
DX: I25.10 Atherosclerotic heart disease of native coronary artery without angina pectoris (principal); I10 Essential (primary) hypertension; E78.5 Hyperlipidemia, unspecified; F17.210 Nicotine dependence, cigarettes, uncomplicated; Z82.49 Family history of ischemic heart disease and other diseases of the circulatory system; G47.33 Obstructive sleep apnea (adult) (pediatric)
CPT/HCPCS: 93350

== ENCOUNTER 2023-11-15 14:07 | Outpatient (CLI) | payer MEDICARE ==
[2023-11-15 18:14] LABS: BASOPHILS % (AUTO) 0.6 %; EOSINOPHILS # (AUTO) 0.2 10^3/uL (0.0-0.7); EOSINOPHILS % (AUTO) 2.4 %; HCT - HEMATOCRIT 41.6 % (42.0-52.0); HGB - HEMOGLOBIN 13.4 g/dL (14.0-18.0); LYMPHOCYTES % (AUTO) 29.6 %; MEAN CORPUSCULAR HEMOGLOBIN 31.7 pg (27.0-31.0); MEAN CORPUSCULAR HGB CONC 32.2 g/dL (32.0-36.0); MEAN CORPUSCULAR VOLUME 98.3 fL (80.0-94.0); MEAN PLATELET VOLUME 10.7 fL (7.4-11.4); MONOCYTES # (AUTO) 0.5 10^3/uL (0.0-1.0); MONOCYTES % (AUTO) 6.9 %; NEUTROPHILS % (AUTO) 60.4 %; PLT - PLATELET COUNT 191 10^3/uL (130-450); RED BLOOD COUNT 4.23 10^6/uL (4.70-6.10); RED CELL DISTRIBUTION WIDTH 13.1 % (12.0-15.0); WHITE BLOOD COUNT 6.7 x10^3/uL (4.8-10.8)
[2023-11-15 18:33] LABS: ALBUMIN 4.7 g/dL (3.2-5.5); ALBUMIN/GLOBULIN RATIO 2.4 (1.0-2.2); ALKALINE PHOSPHATASE 55 IU/L (42-121); ALT ALANINE AMINOTRANSFERASE 23 IU/L (10-60); AST ASPARTATE AMINOTRANSFERASE 16 IU/L (10-42); BILIRUBIN,TOTAL 0.8 mg/dL (0.2-1.0); BUN - BLOOD UREA NITROGEN 22 mg/dL (6-20); CALCIUM 9.9 mg/dL (8.5-10.3); CARBON DIOXIDE - CO2 22 mmol/L (21-32); CHLORIDE 104 mmol/L (101-111); CHOLESTEROL 182 mg/dL; CREATININE 1.3 mg/dL (0.6-1.3); GFR - MDRD 55 (>89); GLUCOSE 102 mg/dL (74-104); HDL CHOLESTEROL 45 mg/dL; LDL CHOLESTEROL,CALCULATED 103 mg/dL; LDL/HDL RATIO 2.3 (<3.6); POTASSIUM 4.3 mmol/L (3.5-4.5); SODIUM 135 mmol/L (135-145); TOTAL PROTEIN 6.7 g/dL (6.4-8.9); TRIGLYCERIDES 172 mg/dL (48-352); VLDL CHOLESTEROL 34 mg/dL
[2023-11-15 18:54] LABS: CREATININE,URINE 121.9 mg/dL
[2023-11-15 19:51] LABS: MICROALBUM/CREATININE RATIO,UR 342.1 ug/mg (<30.0); MICROALBUMIN,URINE 41.7 mg/dL
[2023-11-15 20:42] LABS: ESTIMATED AVERAGE GLUCOSE 128 mg/dL (70-100); HEMOGLOBIN A1c% 6.1 % (4.27-6.07)
== END 2023-11-15 14:08 | disposition home or self-care (01) ==
LOC: LAB.N 14:07
PROVIDERS: ATTEND Physician Assistant
DX: E11.9 Type 2 diabetes mellitus without complications (principal); Z12.5 Encounter for screening for malignant neoplasm of prostate; E78.5 Hyperlipidemia, unspecified
CPT/HCPCS: 36415; 80053; 80061; 82043; 82570; 83036; 85025; G0103; 83721; 84153

== ENCOUNTER 2023-12-24 12:59 | Outpatient (CLI) | payer MEDICARE ==
--- NOTE | 2023-12-24 15:45 | XRAY Report ---
PROCEDURE: Shoulder 2+V BL INDICATIONS: BILATERAL SHOULDER ARTHRITIS TECHNIQUE: 3 views of the shoulder were acquired. COMPARISON: None. FINDINGS: Bones: No fractures or dislocations. No suspicious bony lesions. Visualized ribs appear intact. Right: Moderate acromioclavicular and glenohumeral degenerative narrowing. Subchondral sclerosis and mild presence of periarticular osteophytes. No erosions. Left: Severe acromioclavicular and glenohumeral arthritic change. There is significant subchondral sc lerosis at the glenohumeral joint space with [id number] as well as humeral osteophyte. No erosions. Soft tissues: No suspicious soft tissue calcifications. The visualized lungs are within normal limi ts. IMPRESSION: Moderate to severe arthritic changes at the shoulders left greater than right as above. Reviewed by: Ashley Preciado MD on 12/24/2023 3:44 PM PDT Approved by: Ashley Preciado MD on 12/24/2023 3:44 PM PDT Station ID: [id number]
== END 2023-12-24 13:00 | disposition home or self-care (01) ==
LOC: DI 12:59
PROVIDERS: ATTEND Physician Assistant
DX: M19.011 Primary osteoarthritis, right shoulder (principal); M19.012 Primary osteoarthritis, left shoulder

== ENCOUNTER 2024-02-20 13:08 | Outpatient (CLI) | payer MEDICARE ==
[2024-02-20 18:36] LABS: BASOPHILS % (AUTO) 0.3 %; EOSINOPHILS # (AUTO) 0.3 10^3/uL (0.0-0.7); EOSINOPHILS % (AUTO) 3.8 %; HCT - HEMATOCRIT 38.3 % (42.0-52.0); HGB - HEMOGLOBIN 12.5 g/dL (14.0-18.0); LYMPHOCYTES # (AUTO) 1.6 10^3/uL (1.5-3.5); LYMPHOCYTES % (AUTO) 22.7 %; MEAN CORPUSCULAR HEMOGLOBIN 32.2 pg (27.0-31.0); MEAN CORPUSCULAR HGB CONC 32.6 g/dL (32.0-36.0); MEAN CORPUSCULAR VOLUME 98.7 fL (80.0-94.0); MONOCYTES # (AUTO) 0.5 10^3/uL (0.0-1.0); MONOCYTES % (AUTO) 7.5 %; NEUTROPHILS # (AUTO) 4.6 10^3/uL (1.5-6.6); NEUTROPHILS % (AUTO) 65.6 %; PLT - PLATELET COUNT 251 10^3/uL (130-450); RED BLOOD COUNT 3.88 10^6/uL (4.70-6.10); RED CELL DISTRIBUTION WIDTH 12.7 % (12.0-15.0)
[2024-02-20 19:23] LABS: CREATININE 1.3 mg/dL (0.6-1.3); POTASSIUM 4.4 mmol/L (3.5-4.5)
== END 2024-02-20 13:09 | disposition home or self-care (01) ==
LOC: LAB.N 13:08
PROVIDERS: ATTEND Orthopaedic Surgery
DX: Z01.812 Encounter for preprocedural laboratory examination (principal)
CPT/HCPCS: 36415; 80048; 85025